=== PATIENT | female | born 1995 | race Caucasian/White ===

== ENCOUNTER 2021-10-25 14:56 | Inpatient (IN) ==
[2021-10-25] MEDS ORDERED: PENICILLIN G POTASSIUM 6 MU in DEXTROSE 5% 250 ML IV STA (14:59)
[2021-10-25] MEDS ORDERED: LACTATED RINGER'S 1,000 ML IV PRN (14:59)
[2021-10-25] MEDS ORDERED: OXYTOCIN 30 UNITS/500 ML BAG IV PRN ×3 (14:59→22:22)
[2021-10-25] MEDS ORDERED: PATIENT'S ALLERGY INFO NEEDS ENTERED SCH (15:15)
--- NOTE | 2021-10-25 15:15 | History & Physical Report ---
Date of Service October 25, 2021 Assessment & Plan (1) Group B streptococcal infection during : (2) : Plan: Admit in labor start antibiotics plans for epidural Admission and Anticipated Discharge Date Admission Date: October 25, 2021 History of Present Illness Chief Complaint: term in active labor Primary Care Provider: MARTELL PCP 26 F P0000 in active labor who was seen in the office earlier today Patient History OB History primip [employer] History neg Physical Exam Constitutional: WD/WN, vitals as above Eyes: PERRL, conjunctivae normal, anicteric sclerae Respiratory: normal respiratory effort, lungs clear to auscultation Cardiovascular: RRR, no murmur, no edema Skin: no rashes, warm and dry Neurologic: patellar DTR's 2+ bilat, sensation intact Psychiatric: A+Ox3, euthymic affect Genitourinary: OB Exam Abdomen: + vertex Manual OB Exam: + cervical dilation 6 cm, + cervical effacement 100%, + station 0 and + amniotic fluid OB Exam Monitor Tracing: + external FHT monitor used, + external uterine monitor used, + category I and + normal FHT variability Results & Data ([facility]) Vital Signs (Past 12 Hours) Vital Signs Temp Pulse Resp BP 10/25/21 15:05 37.2 C 96 H 22 163/111 H Code Status & VTE Plan VTE Prophylaxis Plan VTE Prophylaxis will be ordered: No Monitoring External Monitor Cat 1
[2021-10-25 15:26] LABS: Hemoglobin 11.5 g/dL (12.0-16.0); Mean Corpuscular Hemoglobin 33.7 pg (25-34); Mean Corpuscular Hgb Conc 34.8 g/dL (32-36); Mean Corpuscular Volume 96.8 fL (80-100); Mean Platelet Volume 12.4 fL (7.4-10.4); Platelet Count 173 K/uL (130-400); RDW Coefficient of Variation 13.2 % (11.5-14.5); RDW Standard Deviation 45.9 fL (36.4-46.3); Red Blood Count 3.41 M/uL (4.2-5.4); White Blood Count 8.39 K/uL (4.8-10.8)
[2021-10-25] MEDS ORDERED: NALOXONE HCL 1 MG in SODIUM CHLORIDE 0.9% 1000ML 1,000 ML IV PRN (16:20)
[2021-10-25] MEDS ORDERED: NALBUPHINE HCL INJ 10 MG/ML AMP IV PRN (16:20)
[2021-10-25] MEDS ORDERED: ONDANSETRON INJ 2 MG/ML 2 ML VIAL IV PRN (16:20)
[2021-10-25] MEDS ORDERED: NALOXONE HCL 0.4 MG/1 ML VIAL/CARP IV PRN (16:20)
[2021-10-25] MEDS ORDERED: ePHEDrine sulfate 50 MG/ML AMP IV PRN (16:20)
[2021-10-25] MEDS ORDERED: diphenhydrAMINE 50 MG/ML VIAL IV PRN (16:20)
[2021-10-25] MEDS ORDERED: fentaNYL 2MCG/ML ROPIVACAINE 1.25MG/ML 100 ML BAG EPI PRN (16:20)
--- NOTE | 2021-10-25 16:20 | Anesthesiology Consultation ---
Date of Service October 25, 2021 Assessment & Plan ASA ASA3 Proposed Anesthesia Anesthesia Type: Labor Epidural Risk / Benefits Reviewed With: PT / POA / Parent / Guardian, Accepts Plan and Informed Consent Obtained History Allergies Allergy/AdvReac Type Severity Reaction Status Date / Time No Known Allergies Allergy Verified 10/25/21 15:17 Medications Home Medications Medication Instructions Recorded Confirmed Last Taken ascorbic acid (vitamin C) 25 mg mg PO 10/25/21 10/25/21 08:00 tablet dextroamphetamine-amphetamine 5 mg 5 mg PO ONCE 10/25/21 10/25/21 10/24/21 12:00 tablet (Adderall) dextroamphetamine-amphetamine ER 20 mg PO DAILY 10/25/21 10/25/21 10/24/21 08:00 20 mg 24hr capsule,extend release (Adderall XR) ferrous sulfate 325 mg (65 mg 325 mg PO DAILY 10/25/21 10/25/21 10/25/21 08:00 iron) tablet (iron) fluticasone furoate 27.5 INTRANASAL DAILY 10/25/21 10/25/21 08:00 mcg/actuation nasal spray,suspension dyubyfni-uco-Aa-FA 1 mg tab PO 10/25/21 10/25/21 08:00 tablet Active Medications Generic Name Dose Route Start Last Admin Trade Name Freq PRN Reason Stop Dose Admin Lactated Ringer's 1,000 mls @ 125 mls/hr 10/25/21 14:59 10/25/21 15:56 Lr IV 10/27/21 14:58 125 mls/hr .Q8H PRN Administration L&D Protocol Protocol Past Medical History Medical History (Updated 10/25/21 @ 16:16 by Keila Bellamy RN) Attention deficit disorder Recurrent cold sores Seasonal allergies Exercise / Class Metabolic Activity II 4-5 Yardwork/Stairs/Walk up hill Past Anesthesia History No Hx of Anesthesia Complications and No Family Hx of Anesthesia Complications History of PONV No Hx of PONV and No Hx of Motion Sickness Review of Systems denies fever/cough/ colds/ chest pain/ SOB/ BEENA denies BEENA Physical Exam Vital Signs Last Vital Signs Temp 37.2 C 10/25/21 16:26 Pulse 91 H 10/25/21 17:39 Resp 20 10/25/21 16:26 BP 141/87 H 10/25/21 17:33 Pulse Ox 98 10/25/21 17:39 ENMT Mouth: no TMJ abnormality and no dentition abnormality Thyromental Distance: > or= 3.5 Finger Breadths Mallampati Class: II Neck neck extension not limited Respiratory normal respiratory effort; no respiratory distress Auscultation: lungs clear to auscultation bilaterally Cardiovascular Rate/Rhythm: regular rate and regular rhythm Neurologic moves all extremities Psychiatric Orientation: alert and oriented x 3 Testing Laboratory Results 10/25/21 15:12
[2021-10-25] MEDS ORDERED: ePHEDrine sulfate 50 MG/ML AMP ONE (16:54)
[2021-10-25] MEDS ORDERED: SODIUM CHLORIDE 0.9% INJ 10 ML VIAL ONE (16:54)
[2021-10-25] MEDS ORDERED: BUPIVACAINE 0.25% 30 ML VIAL ONE (16:54)
[2021-10-25] MEDS ORDERED: fentaNYL 2MCG/ML ROPIVACAINE 1.25MG/ML 100 ML BAG EPI ONE (16:55)
[2021-10-25] MEDS ORDERED: fentaNYL citrate 100 MCG/2 ML VIAL ONE (16:55)
[2021-10-25] MEDS ORDERED: PENICILLIN G POTASSIUM 3 MU in DEXTROSE 5% 100 ML IV PRN (17:59)
[2021-10-25] MEDS ORDERED: CALCIUM CARBONATE 500 MG CHEWABLE TAB PO PRN (18:53)
--- NOTE | 2021-10-25 19:36 | Labor Progress Brief Note ---
Date of Service October 25, 2021 Assessment & Plan Admission and Anticipated Discharge Date Admission Date: October 25, 2021 Physical Exam Genitourinary: Manual OB Exam: + cervical effacement 100%, + station + 1 and + amniotic fluid clear OB Exam Monitor Tracing: + external FHT monitor used, + external uterine monitor used, + category I and + normal FHT variability Will start Oxytocin to augment contractions Results & Data ([facility]) Vital Signs (Past 12 Hours) Vital Signs Temp Pulse Resp BP Pulse Ox 10/25/21 19:34 95 H 132/93 10/25/21 19:29 86 99 10/25/21 19:24 83 98 10/25/21 19:23 81 141/96 H 10/25/21 19:19 114 H 100 10/25/21 19:14 98 H 157/98 H 100 10/25/21 19:09 84 98 10/25/21 19:04 36.7 C 79 18 140/91 98 10/25/21 18:59 86 99 10/25/21 18:54 82 100 10/25/21 18:53 77 138/98 10/25/21 18:49 81 100 10/25/21 18:46 93 H 136/87 10/25/21 18:44 93 H 100 10/25/21 18:39 87 100 10/25/21 18:34 96 H 98 10/25/21 18:33 90 134/86 10/25/21 18:29 87 100 10/25/21 18:24 80 99 10/25/21 18:23 82 140/90 10/25/21 18:19 91 H 99 10/25/21 18:14 90 149/82 H 99 10/25/21 18:09 88 100 10/25/21 18:04 81 139/88 100 10/25/21 17:59 86 99 10/25/21 17:54 96 H 99 10/25/21 17:53 102 H 132/85 10/25/21 17:49 95 H 100 10/25/21 17:44 93 H 140/88 99 10/25/21 17:39 91 H 98 10/25/21 17:34 90 99 10/25/21 17:33 87 141/87 H 10/25/21 17:29 89 99 10/25/21 17:24 103 H 99 10/25/21 17:22 93 H 149/93 H 10/25/21 17:20 89 147/89 H 10/25/21 17:19 105 H 99 10/25/21 17:18 100 H 149/97 H 10/25/21 17:16 102 H 147/96 H 10/25/21 17:15 99 H 156/99 H 10/25/21 17:14 100 H 100 10/25/21 17:10 93 H 156/88 H 10/25/21 17:09 102 H 99 10/25/21 17:04 106 H 100 10/25/21 17:01 93 H 156/111 H 10/25/21 16:59 100 H 100 10/25/21 16:56 95 H 140/95 10/25/21 16:51 85 148/96 H 10/25/21 16:40 86 145/93 H 10/25/21 16:31 83 136/86 10/25/21 16:26 37.2 C 20 10/25/21 16:21 92 H 133/93 10/25/21 16:10 75 136/87 10/25/21 16:00 80 145/81 H 10/25/21 15:51 78 139/81 10/25/21 15:30 88 148/91 H 10/25/21 15:16 96 H 152/100 H 10/25/21 15:05 37.2 C 96 H 22 163/111 H
[2021-10-25] MEDS ORDERED: LIDOCAINE 1% LOCAL 20 ML VIAL ONE (21:58)
[2021-10-25] MEDS ORDERED: BENZOCAINE 20% AER SPR 82.5 GM CAN EXT PRN (22:22)
[2021-10-25] MEDS ORDERED: HYDROCORTISONE ACETATE 25 MG SUPP PR PRN (22:22)
[2021-10-25] MEDS ORDERED: ACETAMINOPHEN 325 MG TAB PO PRN (22:22)
[2021-10-25] MEDS ORDERED: DIPHTHERIA/TETANUS/PERTUSSIS 0.5 ML SYR/VIAL IM ONE (22:22)
--- NOTE | 2021-10-25 22:28 | Delivery Summary ---
Vaginal Delivery Summary Date of Service October 25, 2021 Vaginal Delivery Summary Delivery Note live female ZHENG over intact perineum with Apgars 8/9 weight pending. Delayed cord clamping followed by cord blood and spontaneous delivery of intact placenta. Small 1st degree perineal tear repaired with 1% Lidocaine and 4/0 Vicryl. Noted prior to delivery while pushing is right sided vulvar swelling with possible hematoma forming with no bleeding noted. Ice applied. EBL 150 ml. Final sponge, needle and instrument count are correct. Mom and baby stable.
[2021-10-25] MEDS: IBUPROFEN 600 MG TAB PO PRN (23:31)
[2021-10-26] MEDS: ACETAMINOPHEN W/CODEINE #3 1 TAB PO PRN ×2 (00:46→07:54)
[2021-10-26] MEDS: IBUPROFEN 600 MG TAB PO PRN ×4 (03:40→17:19)
[2021-10-26] MEDS: PRENATAL VITAMIN 1 TAB PO SCH (07:52)
[2021-10-26] MEDS: FERROUS SULFATE 325 MG TAB PO SCH (07:52)
[2021-10-26] MEDS: DOCUSATE SODIUM 100 MG CAP PO SCH ×2 (07:52→20:10)
[2021-10-26 07:58] LABS: Hematocrit (blood only) 28.9 % (37-47); Hemoglobin 9.9 g/dL (12.0-16.0); Mean Corpuscular Hemoglobin 33.6 pg (25-34); Mean Corpuscular Hgb Conc 34.3 g/dL (32-36); Mean Platelet Volume 12.1 fL (7.4-10.4); Platelet Count 125 K/uL (130-400); RDW Coefficient of Variation 13.3 % (11.5-14.5); RDW Standard Deviation 47.3 fL (36.4-46.3); Red Blood Count 2.95 M/uL (4.2-5.4); White Blood Count 9.93 K/uL (4.8-10.8)
[2021-10-26] MEDS: AMPHETAMINE ASP/SULF/DEXTRAMPH ER 20 MG CAP PO SCH (08:00)
[2021-10-26] MEDS ORDERED: FERROUS SULFATE 325 MG TAB PO SCH (09:00)
--- NOTE | 2021-10-26 09:29 | Obstetrical Progress Note ---
Date of Service October 26, 2021 Assessment & Plan Admission and Anticipated Discharge Date Admission Date: October 25, 2021 Subjective Patient is seen and examined. She feels well, no complaints other than swelling in labia which is getting better Ambulating without dizziness Voiding without difficulty Tolerating regular diet with out N&V Bleeding is minimal No fever/ chills/ CP/ SOB/ N&V/ Leg pain Breast feeding without problems Vital Signs Temp Pulse Pulse Resp BP BP Pulse Ox 10/26/21 07:45 36.4 C L 79 16 141/86 H 99 10/26/21 03:35 36.5 C 75 18 137/86 10/26/21 00:40 36.5 C 83 18 139/83 98 10/26/21 00:21 36.9 C 91 H 18 132/77 10/26/21 00:06 94 H 142/91 H 10/25/21 23:51 96 H 18 141/86 H 10/25/21 23:36 86 136/87 10/25/21 23:20 98 H 18 146/91 H 10/25/21 23:05 91 H 18 142/91 H 10/25/21 22:51 90 18 133/89 10/25/21 22:35 90 18 150/93 H 10/25/21 22:25 86 97 10/25/21 22:21 86 18 151/94 H 10/25/21 22:20 86 97 10/25/21 22:15 95 H 96 10/25/21 22:10 107 H 161/83 H 97 10/25/21 22:06 95 H 155/81 H 10/25/21 22:05 97 H 95 10/25/21 22:00 105 H 96 10/25/21 21:55 112 H 97 10/25/21 21:51 126 H 199/97 H 10/25/21 21:50 130 H 95 10/25/21 21:49 138 H 91 10/25/21 21:45 152 H 95 10/25/21 21:43 156 H 94 10/25/21 21:40 135 H 96 10/25/21 21:38 115 H 80 L 10/25/21 21:37 106 H 145/73 H 10/25/21 21:35 156 H 96 10/25/21 21:30 115 H 97 Lab Results 10/25/21 10/25/2122 Range/Units 15:00 15:12 06:20 WBC 8.39 9.93 (4.8-10.8) K/uL RBC 3.41 L 2.95 L (4.2-5.4) M/uL Hgb 11.5 L 9.9 L (12.0-16.0) g/dL Hct 33.0 L 28.9 L (37-47) % MCV 96.8 98.0 (80-100) fL MCH 33.7 33.6 (25-34) pg MCHC 34.8 34.3 (32-36) g/dL RDW Std Deviation 45.9 47.3 H (36.4-46.3) fL RDW Coeff of Lucas 13.2 13.3 (11.5-14.5) % Plt Count 173 125 L (130-400) K/uL MPV 12.4 H 12.1 H (7.4-10.4) fL SARS-CoV-2, RNA, NAAT NEGATIVE (NEGATIVE) PE: General: Alert, orientedx3, NAD Abd: soft, NT, fundus firm, below Umbilicus Perineum intact, diffuse edema BL, R>L, small purple on the right upper labia Lochia rubra minimal Ext; NT, no edema AP: 26 yo s/p , ppd# 1 VSS Afebrile doing well Labial swelling and stable small hematoma Continue with ice pack, avoid constipation/ straining Continue routine care All questions were answered D/C home tomorrow Results & Data ([facility]) Vital Signs (Past 12 Hours) Vital Signs Temp Pulse Pulse Resp BP BP Pulse Ox 10/26/21 07:45 36.4 C L 79 16 141/86 H 99 10/26/21 03:35 36.5 C 75 18 137/86 10/26/21 00:40 36.5 C 83 18 139/83 98 10/26/21 00:21 36.9 C 91 H 18 132/77 10/26/21 00:06 94 H 142/91 H 10/25/21 23:51 96 H 18 141/86 H 10/25/21 23:36 86 136/87 10/25/21 23:20 98 H 18 146/91 H 10/25/21 23:05 91 H 18 142/91 H 10/25/21 22:51 90 18 133/89 10/25/21 22:35 90 18 150/93 H 10/25/21 22:25 86 97 10/25/21 22:21 86 18 151/94 H 10/25/21 22:20 86 97 10/25/21 22:15 95 H 96 10/25/21 22:10 107 H 161/83 H 97 10/25/21 22:06 95 H 155/81 H 10/25/21 22:05 97 H 95 10/25/21 22:00 105 H 96 10/25/21 21:55 112 H 97 10/25/21 21:51 126 H 199/97 H 10/25/21 21:50 130 H 95 10/25/21 21:49 138 H 91 10/25/21 21:45 152 H 95 10/25/21 21:43 156 H 94 10/25/21 21:40 135 H 96 10/25/21 21:38 115 H 80 L 10/25/21 21:37 106 H 145/73 H 10/25/21 21:35 156 H 96 10/25/21 21:30 115 H 97
--- NOTE | 2021-10-26 09:39 | Obstetrical Progress Note ---
Date of Service October 26, 2021 Assessment & Plan Admission and Anticipated Discharge Date Admission Date: October 25, 2021 Subjective Addendum: BP's have been elevated Low platelets Asymptomatic Order [facility] to check LFT's and start Labetalol Results & Data ([facility]) Vital Signs (Past 12 Hours) Vital Signs Temp Pulse Pulse Resp BP BP Pulse Ox 10/26/21 07:45 36.4 C L 79 16 141/86 H 99 10/26/21 03:35 36.5 C 75 18 137/86 10/26/21 00:40 36.5 C 83 18 139/83 98 10/26/21 00:21 36.9 C 91 H 18 132/77 10/26/21 00:06 94 H 142/91 H 10/25/21 23:51 96 H 18 141/86 H 10/25/21 23:36 86 136/87 10/25/21 23:20 98 H 18 146/91 H 10/25/21 23:05 91 H 18 142/91 H 10/25/21 22:51 90 18 133/89 10/25/21 22:35 90 18 150/93 H 10/25/21 22:25 86 97 10/25/21 22:21 86 18 151/94 H 10/25/21 22:20 86 97 10/25/21 22:15 95 H 96 10/25/21 22:10 107 H 161/83 H 97 10/25/21 22:06 95 H 155/81 H 10/25/21 22:05 97 H 95 10/25/21 22:00 105 H 96 10/25/21 21:55 112 H 97 10/25/21 21:51 126 H 199/97 H 10/25/21 21:50 130 H 95 10/25/21 21:49 138 H 91 10/25/21 21:45 152 H 95 10/25/21 21:43 156 H 94 10/25/21 21:40 135 H 96
[2021-10-26 10:12] LABS: Albumin Level 2.8 gm/dl (3.4-5.0); BUN Creatinine Ratio 12.3 (10-20); Bilirubin,Total 0.2 mg/dl (0.2-1.0); Calcium 8.5 mg/dl (8.5-10.1); Creatinine Clr Calc Pharmacy 111.3 ml/min; Est GFR (Non-African American) 120.8 ml/min; Globulin 2.7 gm/dl (2.5-4.0); Total Protein 5.5 gm/dl (6.0-8.3)
[2021-10-26] MEDS: MAGNESIUM HYDROXIDE SUSP 30 ML UDC PO SCH ×2 (10:20→20:10)
[2021-10-26] MEDS: LABETALOL HCL 100 MG TAB PO SCH ×2 (10:24→20:11)
[2021-10-26] MEDS: AMPHETAMINE ASP/SULF/DEXTRAMPH 5 MG TAB PO SCH (12:31)
[2021-10-26] MEDS: oxyCODONE/ACETAMINOPHEN 5mg/325mg TAB PO PRN ×2 (13:22→17:19)
[2021-10-26] MEDS ORDERED: bisacodyL 5 MG TABEC PO SCH (20:00)
[2021-10-26] MEDS ORDERED: MoRPHine SULFATE 4 MG/ML 1 ML CARP\\VIAL IV ONE (20:38)
[2021-10-27] MEDS ORDERED: bisacodyL 10 MG SUPP PR PRN
[2021-10-27] MEDS: IBUPROFEN 600 MG TAB PO PRN ×2 (00:14→05:06)
[2021-10-27] MEDS: oxyCODONE/ACETAMINOPHEN 5mg/325mg TAB PO PRN ×3 (00:14→14:08)
[2021-10-27 06:29] LABS: Hematocrit (blood only) 26.7 % (37-47)
[2021-10-27 07:34] LABS: Hematocrit (blood only) 26.5 % (37-47); Mean Corpuscular Hemoglobin 33.8 pg (25-34); Mean Corpuscular Volume 99.6 fL (80-100); Platelet Count 134 K/uL (130-400); RDW Coefficient of Variation 13.6 % (11.5-14.5); RDW Standard Deviation 48.8 fL (36.4-46.3); Red Blood Count 2.66 M/uL (4.2-5.4); White Blood Count 8.37 K/uL (4.8-10.8)
[2021-10-27 08:03] LABS: Basophils # (auto) 0.02 K/uL (0-0.2); Basophils % (auto) 0.2 %; Eosinophils # (auto) 0.08 K/uL (0-0.5); Immature Granulocytes # (auto) 0.01 K/uL (0.00-0.02); Immature Granulocytes % (auto) 0.1 %; Lymphocytes # (auto) 1.39 K/uL (1.2-3.4); Lymphocytes % (auto) 16.6 %; Monocytes % (auto) 7.2 %; Neutrophils # (auto) 6.27 K/uL (1.4-6.5); Neutrophils % (auto) 74.9 %
[2021-10-27 08:04] LABS: Alanine Aminotransferase 20 U/L (7-52); Albumin Globulin Ratio 1.3 (0.9-2); Alkaline Phosphatase 135 U/L (34-104); Anion Gap 7 (3-11); Aspartate Aminotransferase 44 U/L (13-39); BUN Creatinine Ratio 18.4 (10-20); Bilirubin,Total 0.2 mg/dl (0.2-1.0); Blood Urea Nitrogen 9 mg/dl (6-23); Calcium 7.9 mg/dl (8.5-10.1); Carbon Dioxide 24 mmol/L (21-32); Chloride 105 mmol/L (98-107); Creatinine Clr Calc Pharmacy 147.6 ml/min; Est GFR (African American) > 150.0 ml/min; Est GFR (Non-African American) 132.6 ml/min; Globulin 2.4 gm/dl (2.5-4.0); Glucose 90 mg/dl (70-99(Fasting)); Potassium 3.8 mmol/L (3.5-5.1); Sodium 136 mmol/L (136-145); Total Protein 5.4 gm/dl (6.0-8.3)
--- NOTE | 2021-10-27 08:38 | Obstetrical Progress Note ---
Date of Service October 27, 2021 Assessment & Plan (1) Normal course: Continue routine PP course D/C home today (2) Gestational hypertension: BP well controlled on labetalol 100 mg BID, last BP 126/76 BP check in 1 week Subjective Ambulation: ambulating normally Voiding: no voiding problems Passing Gas:: Yes Diet Tolerance:: regular diet Lochia:: Small Feeding Type:: bottle feeding Current Pain Level(1-10): 1 Physical Exam Constitutional WD/WN, vitals as above Respiratory normal respiratory effort, lungs clear to auscultation Cardiovascular RRR, no murmur, no edema Gastrointestinal (Abdomen) normal bowel sounds, soft, nontender, no hepatosplenomegaly Results & Data ([facility]) Vital Signs (Past 12 Hours) Vital Signs Temp Pulse Resp BP BP Pulse Ox 10/27/21 07:28 36.5 C 82 16 126/76 10/27/21 03:18 36.6 C 83 16 142/78 H 97 10/27/21 00:10 36.7 C 94 H 17 131/78 97 10/26/21 21:00 146/88 H
[2021-10-27] MEDS: DOCUSATE SODIUM 100 MG CAP PO SCH (08:48)
[2021-10-27] MEDS: MAGNESIUM HYDROXIDE SUSP 30 ML UDC PO SCH (08:49)
[2021-10-27] MEDS: AMPHETAMINE ASP/SULF/DEXTRAMPH ER 20 MG CAP PO SCH (08:49)
[2021-10-27] MEDS: FERROUS SULFATE 325 MG TAB PO SCH (08:49)
[2021-10-27] MEDS: PRENATAL VITAMIN 1 TAB PO SCH (08:49)
[2021-10-27] MEDS ORDERED: LABETALOL HCL 100 MG TAB PO SCH (09:00)
[2021-10-27] MEDS: AMPHETAMINE ASP/SULF/DEXTRAMPH 5 MG TAB PO SCH (14:12)
== END 2021-10-27 14:56 | disposition home or self-care (01) | DRG 806 ==
LOC: OPB 14:56 → 4S1 14:58 → 4S2 10-26 00:57

== ENCOUNTER 2024-09-28 11:56 | Inpatient (IN) ==
[2024-09-28 12:39] LABS: Appearance Urine Cloudy (Clear); Bacteria Urine Automated 2+ (None Seen); Bilirubin Urine 1+ (Negative); Blood Urine Negative (Negative); Cast Urine Automated 0-2 /lpf (0-2); Color Urine Dark Yellow; Glucose Urine UA Negative (Negative); Ketones Urine 3+ (Negative); Leukocyte Esterase Urine Negative (Negative); Mucus Urine Present (None Prsent); Nitrite Urine Negative (Negative); Protein Urine 1+ (Negative); RBC Urine Automated 0-2 /hpf (0-2); Specific Gravity Urine 1.035 (1.000-1.030); Urobilinogen Urine Negative (Negative); WBC Urine Automated 0-5 /hpf (0-5)
--- NOTE | 2024-09-28 12:48 | Emergency Department Note ---
Impression & Plan Acute confusion ED Provider Note HISTORY OF PRESENT ILLNESS: Patient is a 29-year-old female presenting with altered mental status. provides most of history given patient's confusion. Reports that the patient has been having passive worsening confusion over the last 4 days. Reports that the patient has not had any changes to medications in the last week. She was supposed to be on Lexapro and that was changed about a month ago, but the patient has not been taking this. just thought that she was very tired and stressed from the holidays with there are 2 small children, 3-year-old and a 1-year-old. However, she is now telling him that she is hearing voices and worried that their "house is bugged." Reports she has not been eating or drinking much. Patient denies any abdominal pain, chest pain, shortness of breath, nausea or vomiting. She reports "I do not understand what is going on." Patient is frequently looking around the room. denies the patient having any alcohol or recreational drug use. ROS: as above PHYSICAL EXAM: Constitutional: Patient appears in no acute distress. HENT: Head: Normocephalic and atraumatic. Eyes: EOMI, PERRL Mouth/Throat: Mucous membranes moist. Neck: Trachea midline. Neck supple. Musculoskeletal: No edema, tenderness or deformity noted. Skin: Warm and dry. No rash, erythema, pallor or cyanosis Psychiatric: Patient seems to be frequently looking around the room and has difficulties making eye contact. Neurological: Alert and keenly responsive. CN II-XII grossly intact, moving all extremities equally and fully. MDM: - Vitals signs showed hypertension and tachycardia - History obtained via patient and patient's , given patient's confusion. History as above. - Chronic conditions affecting care: Gestational hypertension - Differential diagnoses include, but are not limited to: acute psychosis; drug intoxication; alcohol intoxication; intracranial hemorrhage; CVA; pneumonia; UTI\\ - External medical records reviewed. - EKG interpreted by myself showed normal sinus rhythm. Rate 81 bpm. QT 378. No acute ischemic changes. Noted have some T wave inversions in leads II and III. - Laboratory workup interpreted by myself showed slight leukopenia (WBC 4.49); normal PT/INR; stable electrolytes; normal troponin; negative hCG; normal TSH; negative alcohol/acetaminophen/salicylate levels - UA showed bacteria but no secondary findings to suggest a UTI. Noted to have 3+ ketones and elevated specific gravity, consistent with dehydration. - Viarl respiratory panel negative - UDS positive for THC - Patient given 1L NS in ER. - CT head wo contrast showed asymmetric prominence of the left caudate nucleus compared with the right which could be developmental versus secondary to a mass defect. Recommended brain MRI. - MRI brain ordered. - Discussed results with patient and her at bedside. reports that the THC was from a few weeks ago and she has not had anything recently. He states that she is still very confused and not her normal baseline. Patient is looking around the room and repeating questions from just a few minutes ago. 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 Will admit to hospital service for further evaluation and management. - Discussion was had with renal case manager about patient's case and need for admission - Hospitalist consulted for admission - Patient admitted to [facility] service for further evaluation and management. ASSESSMENT AND PLAN: Diagnosis: Acute confusion Plan: Admit Past Med/Surg History Problem List (Updated 09/28/24 @ 17:00 by Destinee Ball PA-C) Acute confusion (Acute) Medical History (Updated 09/28/24 @ 17:00 by Destinee Ball PA-C) Antepartum anemia Gestational hypertension Group B streptococcal infection during Seasonal allergies Recurrent cold sores Attention deficit disorder Surgical History (Updated 09/28/24 @ 17:00 by Destinee Ball PA-C) No pertinent past surgical history Family History (Updated 09/28/24 @ 17:01 by Destinee Ball PA-C) Brother Suicide Sister Liver disease Father Hypertension Other Heart disease Social History Smoking Status: Never smoker Hx Alcohol Use: No Hx Substance Use: No Preferred Language: Turkish Manager Risk Required: No Beliefs That Will Affect Care: None marital status: Current Living Situation: Spouse Feels Safe at Home: Yes Assistive Devices: None Allergies Allergies Allergy/AdvReac Type Severity Reaction Status Date / Time No Known Allergies Allergy Verified 10/25/21 15:17 Home Meds Home Medications Medication Instructions Recorded Confirmed ascorbic acid (vitamin C) 25 mg mg PO 10/25/21 tablet dextroamphetamine-amphetamine 5 mg 5 mg PO ONCE 10/25/21 10/25/21 tablet (Adderall) dextroamphetamine-amphetamine ER 20 mg PO DAILY 10/25/21 10/25/21 20 mg 24hr capsule,extend release (Adderall XR) ferrous sulfate 325 mg (65 mg 325 mg PO DAILY 10/25/21 10/25/21 iron) tablet (iron) fluticasone furoate 27.5 intranasal DAILY 10/25/21 mcg/actuation nasal spray,suspension wgbkyapz-[id number]-Ut-FA 1 mg tab PO 10/25/21 tablet Results & Data (ED) Vital Signs Vital Signs - 24 hr 09/28/24 12:00 09/28/24 12:09 09/28/24 15:28 Temperature 36.8 C Temperature Source Skin Pulse Rate 93 H Pulse Rate [Apical] 73 Respiratory Rate 18 18 Blood Pressure 157/105 H Blood Pressure [Right Arm] 129/83 Blood Pressure Mean 122 Blood Pressure Mean [Right Arm] 98 Pulse Oximetry 98 96 98 Oxygen Delivery Method Room Air Sepsis Recent Fever Within 48 Hours No Sepsis New/Unexplained Change in Mental Status No Sepsis Action Taken by Nursing No Action Required Laboratory Data 09/28/24 12:18 09/28/24 12:18 Lab Results 09/28/24 Range/Units 12:18 WBC 4.49 L (4.8-10.8) K/ul RBC 4.24 (4.20-5.40) M/uL Hgb 14.2 (12.0-16.0) g/dl Hct 40.5 (37.0-47.0) % MCV 95.5 (80.0-100.0) fL MCH 33.5 (25.0-34.0) pg MCHC 35.1 (32.0-36.0) g/dL RDW Std Deviation 40.5 (36.4-46.3) fL RDW Coeff of Lucas 11.7 (11.5-14.5) % Plt Count 229 (130-400) K/uL MPV 10.8 (9.4-12.4) fL Immature Gran % (Auto) 0.2 % Neut % (Auto) 54.8 % Lymph % (Auto) 33.0 % [place] % (Auto) 10.2 % Eos % (Auto) 0.7 % Baso % (Auto) 1.1 % Neut # (Auto) 2.46 (1.40-6.50) K/uL Lymph # (Auto) 1.48 (1.20-3.40) K/uL [place] # (Auto) 0.46 (0.11-0.59) K/uL Eos # (Auto) 0.03 (0.00-0.50) K/uL Baso # (Auto) 0.05 (0.00-0.20) K/uL Immature Gran # (Auto) 0.01 (0.01-0.20) K/uL PT 10.9 (9.0-12.0) Seconds INR 1.0 (0.9-1.1) Sodium 140 (136-145) mmol/L Potassium 3.7 (3.5-5.1) mmol/L Chloride 104 (98-107) mmol/L Carbon Dioxide 27 (21-32) mmol/L Anion Gap 9 (3-11) BUN 15 (6-23) mg/dl Creatinine 0.70 (0.6-1.2) mg/dl Est Cr Clr Drug Dosing 98.2 ml/min eGFR 118.51 BUN/Creatinine Ratio 21.4 H (10-20) Glucose 89 (70-99(Fasting)) mg/dl Calcium 9.8 (8.6-10.3) mg/dl Magnesium 1.7 (1.7-2.4) mg/dl Total Bilirubin 0.8 (0.2-1.0) mg/dl AST 28 (13-39) U/L ALT 18 (7-52) U/L Alkaline Phosphatase 74 (34-104) U/L Troponin I High Sens < 2.3 (0-14) pg/ml Total Protein 8.3 (6.0-8.3) gm/dl Albumin 4.9 (3.4-5.0) gm/dl Globulin 3.4 (2.5-4.0) gm/dl Albumin/Globulin Ratio 1.4 (0.9-2) TSH 1.848 (0.300-4.500) uIu/ml HCG, Qual Negative (Negative) Urine Color Dark Yellow Urine Appearance Cloudy A (Clear) Urine pH 6.0 (4.5-7.5) Ur Specific [place] 1.035 H (1.000-1.030) Urine Protein 1+ H (Negative) Urine Glucose (UA) Negative (Negative) Urine Ketones 3+ H (Negative) Urine Blood Negative (Negative) Urine Nitrite Negative (Negative) Urine Bilirubin 1+ H (Negative) Urine Urobilinogen Negative (Negative) Ur Leukocyte Esterase Negative (Negative) Urine WBC (Auto) 0-5 (0-5) /hpf Urine RBC (Auto) 0-2 (0-2) /hpf U Hyaline Cast (Auto) 0-2 (0-2) /lpf U Epithel Cells (Auto) 6-10 H (0-2) /hpf Urine Bacteria (Auto) 2+ H (None Seen) Urine Mucus Present A (None Prsent) Salicylates < 3.0 L (3.0-30) mg/dl Urine Opiates Screen Neg (Neg) Ur Methadone, Qual Neg (Neg) Urine Fentanyl Screen Neg (Neg) Acetaminophen < 3 L (10-30) ug/ml Urine Barbiturates Neg (Neg) Ur Phencyclidine (PCP) Neg (Neg) U Amphetamin/Meth Scrn Neg (Neg) MDMA (Ecstasy) Screen Neg (Neg) U Benzodiazepines Scrn Neg (Neg) Ur Cocaine Metabolite Neg (Neg) U Marijuana (THC) Screen Pos H (Neg) Ethyl Alcohol mg/dL < 10.0 (<10.0) mg/dl Adenovirus (PCR) Not Detected (NotDetected) B. pertussis DNA (PCR) Not Detected (NotDetected) B.parapertussis DNA PCR Not Detected (NotDetected) C. pneumoniae DNA (PCR) Not Detected (NotDetected) Coronavirus OC43 (PCR) Not Detected (NotDetected) Coronavirus HKU1 (PCR) Not Detected (NotDetected) Coronavirus 229E (PCR) Not Detected (NotDetected) SARS-CoV-2 (PCR) Not Detected (NotDetected) Coronavirus NL63 (PCR) Not Detected (NotDetected) Human Metapneumovir PCR Not Detected (NotDetected) Influenza Type A (PCR) Not Detected (NotDetected) Influenza Type B (PCR) Not Detected (NotDetected) M. pneumoniae (PCR) Not Detected (NotDetected) Parainfluenza 1 (PCR) Not Detected (NotDetected) Parainfluenza 2 (PCR) Not Detected (NotDetected) Parainfluenza 3 (PCR) Not Detected (NotDetected) Parainfluenza 4 (PCR) Not Detected (NotDetected) RSV (PCR) Not Detected (NotDetected) Entero/Rhino (PCR) Not Detected (NotDetected) Administered Medications Discontinued Medications Sodium Chloride (Nss) 1,000 mls @ 999 mls/hr IV .Q1H1M ONE Stop: 09/28/24 15:02 Last Infusion: 09/28/24 15:16 Dose: Infused Documented By: Admin: 09/28/24 14:05 Dose: 999 mls/hr Documented By: SHANIKA Imaging Data Radiologist's Impression: Head CT 09/28/24 14:02 CT head/brain wo con CLINICAL HISTORY: confusion. Paranoia TECHNIQUE: Multiple axial CT images of the head were obtained without contrast. A dose lowering technique was utilized adhering to the principles of ALARA. Sagittal and coronal reconstructions were done. CT DOSE: 547.75 mGy.cm COMPARISON: None FINDINGS: There is no intra-axial or extra-axial fluid collection or hemorrhage. There is subtle asymmetry in the size of the caudate nuclei with the left caudate nucleus seemingly being significantly larger than the right. In spite of this, it is isointense with normal caudate nuclei tissue and is not associated with any mass effect. No additional brain attenuation abnormalities are identified. The ventricles and sulci are age appropriate with no midline shift. The bone windows are negative. IMPRESSION: Equivocal finding associated with asymmetric prominence of the left caudate nucleus compared with the right. This may be developmental or due to a migration defect but a mass cannot be completely excluded. Consider brain MRI for definitive evaluation. ACT 112: Negative or not required by law. The above report was generated using voice recognition software. It may contain grammatical, syntax or spelling errors. Electronically signed by: Brandi Tovar M.D. 09/28/2024 2:39 PM Discharge Plan Visit Data Chief Complaint: Mental Health Evaluation Stated Complaint: MENTAL HEALTH EVAL ED Provider: Briana Armenta Discharge Problem: Acute confusion Forms Stand Alone Forms: [facility], Suicide Prevention Resources Prescriptions Prescriptions: No Action dextroamphetamine-amphetamine [Adderall XR] 20 mg Capsule,Extended Release 24hr 20 mg PO DAILY Rx Instructions: takes in AM dextroamphetamine-amphetamine [Adderall] 5 mg Tablet 5 mg PO ONCE Rx Instructions: booster dose takes at lunch time fycmjbhy-[id number]-On-FA 1 mg Tablet PO ascorbic acid (vitamin C) 25 mg Tablet PO ferrous sulfate [iron] 325 mg (65 mg iron) Tablet 325 mg PO DAILY fluticasone furoate 27.5 mcg/actuation [place],Suspension INTRANASAL DAILY Referrals Referrals: PCP,NO [Physician] -
[2024-09-28 12:57] LABS: Basophils # (auto) 0.05 K/uL (0.00-0.20); Basophils % (auto) 1.1 %; Eosinophils # (auto) 0.03 K/uL (0.00-0.50); Eosinophils % (auto) 0.7 %; Hematocrit (blood only) 40.5 % (37.0-47.0); Hemoglobin 14.2 g/dl (12.0-16.0); Immature Granulocytes # (auto) 0.01 K/uL (0.01-0.20); Immature Granulocytes % (auto) 0.2 %; Lymphocytes # (auto) 1.48 K/uL (1.20-3.40); Mean Corpuscular Hemoglobin 33.5 pg (25.0-34.0); Mean Corpuscular Hgb Conc 35.1 g/dL (32.0-36.0); Mean Corpuscular Volume 95.5 fL (80.0-100.0); Mean Platelet Volume 10.8 fL (9.4-12.4); Monocytes # (auto) 0.46 K/uL (0.11-0.59); Monocytes % (auto) 10.2 %; Neutrophils # (auto) 2.46 K/uL (1.40-6.50); Neutrophils % (auto) 54.8 %; Platelet Count 229 K/uL (130-400); RDW Coefficient of Variation 11.7 % (11.5-14.5); RDW Standard Deviation 40.5 fL (36.4-46.3); Red Blood Count 4.24 M/uL (4.20-5.40); White Blood Count 4.49 K/ul (4.8-10.8)
[2024-09-28 13:07] LABS: Alanine Aminotransferase 18 U/L (7-52); Albumin Globulin Ratio 1.4 (0.9-2); Albumin Level 4.9 gm/dl (3.4-5.0); Alkaline Phosphatase 74 U/L (34-104); Anion Gap 9 (3-11); Aspartate Aminotransferase 28 U/L (13-39); BUN Creatinine Ratio 21.4 (10-20); Bilirubin,Total 0.8 mg/dl (0.2-1.0); Blood Urea Nitrogen 15 mg/dl (6-23); Calcium 9.8 mg/dl (8.6-10.3); Carbon Dioxide 27 mmol/L (21-32); Chloride 104 mmol/L (98-107); Creatinine Clr Calc Pharmacy 98.2 ml/min; Globulin 3.4 gm/dl (2.5-4.0); Glucose 89 mg/dl (70-99(Fasting)); Magnesium 1.7 mg/dl (1.7-2.4); Potassium 3.7 mmol/L (3.5-5.1); Sodium 140 mmol/L (136-145); Total Protein 8.3 gm/dl (6.0-8.3)
[2024-09-28 13:08] LABS: Pregnancy Test, Serum Negative (Negative)
[2024-09-28 13:12] LABS: Troponin I High Sensitivity < 2.3 pg/ml (0-14)
[2024-09-28 13:13] LABS: Amphetamines+Metham, Urine Neg (Neg); Barbiturates, Urine Neg (Neg); Benzodiazepine, Urine Neg (Neg); Cocaine, Urine Neg (Neg); Fentanyl, Urine Neg (Neg); MDMA (Ecstacy), Urine Neg (Neg); Marijuana, Urine Pos (Neg); Methadone, Urine Neg (Neg); Opiate, Urine Neg (Neg); Phencyclidine, Urine Neg (Neg)
[2024-09-28 13:17] LABS: Prothrombin Time 10.9 Seconds (9.0-12.0)
[2024-09-28 13:18] LABS: Adenovirus PCR Not Detected (NotDetected); Bordetella parapertussis PCR Not Detected (NotDetected); Bordetella pertussis PCR Not Detected (NotDetected); Chlamydia pneumoniae PCR Not Detected (NotDetected); Coronavirus 229E PCR Not Detected (NotDetected); Coronavirus CoV-2 (COVID19)PCR Not Detected (NotDetected); Coronavirus HKU1 PCR Not Detected (NotDetected); Coronavirus NL63 PCR Not Detected (NotDetected); Coronavirus OC43PCR Not Detected (NotDetected); Human Metapneumovirus PCR Not Detected (NotDetected); Influenza A PCR Not Detected (NotDetected); Influenza B PCR Not Detected (NotDetected); Mycoplasma pneumoniae PCR Not Detected (NotDetected); Parainfluenza Virus 1 PCR Not Detected (NotDetected); Parainfluenza Virus 2 PCR Not Detected (NotDetected); Parainfluenza Virus 3 PCR Not Detected (NotDetected); Parainfluenza Virus 4 PCR Not Detected (NotDetected); Respiratory Syncytial VirusPCR Not Detected (NotDetected); Rhinovirus/Enterovirus PCR Not Detected (NotDetected)
[2024-09-28 13:19] LABS: Acetaminophen < 3 ug/ml (10-30); Salicylate < 3.0 mg/dl (3.0-30)
[2024-09-28 13:22] LABS: Thyroid Stimulating Hormone 1.848 uIu/ml (0.300-4.500)
[2024-09-28] MEDS: SODIUM CHLORIDE 0.9% 1,000 ML IV ONE (14:05)
--- NOTE | 2024-09-28 14:40 | CT Scan Report ---
CT head/brain wo con CLINICAL HISTORY: confusion. Paranoia TECHNIQUE: Multiple axial CT images of the head were obtained without contrast. A dose lowering tech nique was utilized adhering to the principles of ALARA. Sagittal and coronal reconstructions were don e. CT DOSE: 547.75 mGy.cm COMPARISON: None FINDINGS: There is no intra-axial or extra-axial fluid collection or hemorrhage. There is subtle asym metry in the size of the caudate nuclei with the left caudate nucleus seemingly being significantly l arger than the right. In spite of this, it is isointense with normal caudate nuclei tissue and is not associated with any mass effect. No additional brain attenuation abnormalities are identified. The v entricles and sulci are age appropriate with no midline shift. The bone windows are negative. IMPRESSION: Equivocal finding associated with asymmetric prominence of the left caudate nucleus kristen red with the right. This may be developmental or due to a migration defect but a mass cannot be compl etely excluded. Consider brain MRI for definitive evaluation. ACT 112: Negative or not required by law. The above report was generated using voice recognition software. It may contain grammatical, syntax o r spelling errors. Electronically signed by: Brandi Tovar M.D. 09/28/2024 2:39 PM
--- NOTE | 2024-09-28 17:02 | History & Physical Report ---
Date of Service September 28, 2024 Assessment & Plan (1) Acute confusion: (2) Auditory hallucinations: (3) Attention deficit disorder: Plan This is a 29 y/o female with ADHD, prior gestational hypertension, post- depression, and other history as outlined below who presents to the ED today with acute confusion. Pt's initial work-up in the ED was negative for a specific cause. TSH was normal, urine positive for protein and ketones but negative for blood and leuk esterase. Urine tox was preliminarily positive for THC - reports use of vape pen 1-2 weeks ago. EtOH was negative. BioFire negative. CT head showed asymmetric prominence of the left caudate nucleus compared with the right so MRI of the brain was ordered and is pending. Pt referred for admission for further work-up and management of acute confusion without clear etiology. Differential includes infectious etiology such as UTI or Lyme, brain lesion, metabolic etiology, or psychiatric cause including potential acute psychosis. #Acute confusion #Auditory hallucinations - Admit to med telemetry - Additional labs ordered now - VBG, Lyme screen, B12, ammonia - MRI brain pending - if abnormal, consider neurology evaluation - Consult psychiatry - Empiric Rocephin - urine culture pending, Lyme screen ordered #ADHD - combined type #Anxiety - Not currently on any medications - stopped approximately one month ago #Abnormal EKG - Trend troponin - ECHO - Repeat EKG in the AM Pt seen and reviewed with collaborating physician, Dr. Ace. Plan of care discussed and as outlined above. Code status: full code DVT prophylaxis: Lovenox I spent a total [id number] coordinating, documenting, and providing care for this patient excluding time spent in the performance of separately billed services or time spent by another provider/[facility] Charles Ball PA-C History of Present Illness Chief Complaint: confusion Primary Care Provider: Maikel Stanton MD This is a 29 y/o female with ADHD, prior gestational hypertension, post- depression, and other history as outlined below who presents to the ED today with acute confusion. assists with the history due to patient's altered mental status. He reports that on Friday, three days ago, he noted that she seemed more lethargic and slightly confused. On Friday, the confusion seemed to be worsening. He describes patient as being paranoid and stating that their home was bugged and that someone was watching her. He is unsure if she was having visual hallucinations but notes she appeared to be having auditory hallucinations asking him if he heard things that no one else was hearing. He reports pt has had minimal oral intake over the last two days, which he relates to the paranoia. When asked, pt just says that she's not eating. She has also not been sleeping much the last 2-3 nights due to her son waking up frequently as well as due to increased anxiety. Her notes increasing social anxiety over the last several months. She apparently received notice on last week for jury duty yesterday, which resulted in increased anxiety. She was unable to attend jury duty yesterday because of the confusion and lethargy. She denies suicidal ideations, and her confirms that she has said nothing about hurting herself to him. She recognizes her children but today did not seem to know how she was supposed to interact with them. Her reports similar, less severe, symptoms about a month ago that lasted for two days before resolving spontaneously. Prior to that, he denies her having similar symptoms in the fourteen years that they have been together. She reportedly drinks alcohol a few times a week, typically a glass of wine with dinner or something similar. Her reports that she used a marijuana vape pen briefly 1-2 weeks ago but states that she does not regularly smoke. She has a history of ADHD and was on Adderall for years. However, about a month ago, she decided to stop all of her medications "cold turkey" one weekend just before the first episode of altered mental status. She saw her PCP after that episodes and was prescribed hydroxyzine for anxiety which she has only taken occasionally, most recently this morning. Pt denies overdosing on any of her medications or on any OTC medications. She denies chest pain, shortness of breath, neck stiffness, ROMERO, visual changes, N/V/D, abdominal pain, dysuria, fevers, weakness, syncope. She had some transient numbness and tingling in her bilateral fingertips earlier today. She notes occasional palpitations when anxiety is more severe. Allergies Allergy/AdvReac Type Severity Reaction Status Date / Time No Known Allergies Allergy Verified 10/25/21 15:17 Home Medications Medication Instructions Recorded Confirmed Type hydroxyzine HCl 10 mg tablet 10 mg PO Q6H PRN Anxiety 09/28/24 09/28/24 History Past Med/Surg History Problem List (Updated 09/28/24 @ 18:02 by Destinee Ball PA-C) Auditory hallucinations Acute confusion (Acute) Medical History (Updated 09/28/24 @ 18:02 by Destinee Ball PA-C) Antepartum anemia Gestational hypertension Group B streptococcal infection during Seasonal allergies Recurrent cold sores Attention deficit disorder Surgical History (Updated 09/28/24 @ 17:00 by Destinee Ball PA-C) No pertinent past surgical history Family History (Updated 09/28/24 @ 17:01 by Destinee Ball PA-C) Brother Suicide Sister Liver disease Father Hypertension Other Heart disease Social History Smoking Status: Never smoker Hx Alcohol Use: Yes Alcohol type: wine Hx Substance Use: No Preferred Language: [place] Communication Ability: Effective [place] Technician Required: No Beliefs That Will Affect Care: None marital status: Current Living Situation: Spouse Current Living Situation Comment: live with spouse and two kids in a house Feels Safe at Home: Yes Safety Concerns: Feels Safe At This Time Assistive Devices: None Review of Systems Review of Systems: All systems reviewed & are unremarkable except as noted in Subjective Physical Exam Physical Exam: See physician note for details of the physical exam. Results & Data Results & Data Vital Signs (Past 12 Hours) Vital Signs Temp Pulse Pulse Resp BP BP Pulse Ox 09/28/24 15:28 73 18 129/83 98 09/28/24 12:09 96 09/28/24 12:00 36.8 C 93 H 18 157/105 H 98 O2 Del Method 09/28/24 15:28 Room Air 09/28/24 12:09 09/28/24 12:00 Laboratory Results Lab Results 09/28/24 Range/Units 12:18 WBC 4.49 L (4.8-10.8) K/ul RBC 4.24 (4.20-5.40) M/uL Hgb 14.2 (12.0-16.0) g/dl Hct 40.5 (37.0-47.0) % MCV 95.5 (80.0-100.0) fL MCH 33.5 (25.0-34.0) pg MCHC 35.1 (32.0-36.0) g/dL RDW Std Deviation 40.5 (36.4-46.3) fL RDW Coeff of Lucas 11.7 (11.5-14.5) % Plt Count 229 (130-400) K/uL MPV 10.8 (9.4-12.4) fL Immature Gran % (Auto) 0.2 % Neut % (Auto) 54.8 % Lymph % (Auto) 33.0 % [place] % (Auto) 10.2 % Eos % (Auto) 0.7 % Baso % (Auto) 1.1 % Neut # (Auto) 2.46 (1.40-6.50) K/uL Lymph # (Auto) 1.48 (1.20-3.40) K/uL [place] # (Auto) 0.46 (0.11-0.59) K/uL Eos # (Auto) 0.03 (0.00-0.50) K/uL Baso # (Auto) 0.05 (0.00-0.20) K/uL Immature Gran # (Auto) 0.01 (0.01-0.20) K/uL PT 10.9 (9.0-12.0) Seconds INR 1.0 (0.9-1.1) Sodium 140 (136-145) mmol/L Potassium 3.7 (3.5-5.1) mmol/L Chloride 104 (98-107) mmol/L Carbon Dioxide 27 (21-32) mmol/L Anion Gap 9 (3-11) BUN 15 (6-23) mg/dl Creatinine 0.70 (0.6-1.2) mg/dl Est Cr Clr Drug Dosing 98.2 ml/min eGFR 118.51 BUN/Creatinine Ratio 21.4 H (10-20) Glucose 89 (70-99(Fasting)) mg/dl Calcium 9.8 (8.6-10.3) mg/dl Magnesium 1.7 (1.7-2.4) mg/dl Total Bilirubin 0.8 (0.2-1.0) mg/dl AST 28 (13-39) U/L ALT 18 (7-52) U/L Alkaline Phosphatase 74 (34-104) U/L Troponin I High Sens < 2.3 (0-14) pg/ml Total Protein 8.3 (6.0-8.3) gm/dl Albumin 4.9 (3.4-5.0) gm/dl Globulin 3.4 (2.5-4.0) gm/dl Albumin/Globulin Ratio 1.4 (0.9-2) TSH 1.848 (0.300-4.500) uIu/ml HCG, Qual Negative (Negative) Urine Color Dark Yellow Urine Appearance Cloudy A (Clear) Urine pH 6.0 (4.5-7.5) Ur Specific [place] 1.035 H (1.000-1.030) Urine Protein 1+ H (Negative) Urine Glucose (UA) Negative (Negative) Urine Ketones 3+ H (Negative) Urine Blood Negative (Negative) Urine Nitrite Negative (Negative) Urine Bilirubin 1+ H (Negative) Urine Urobilinogen Negative (Negative) Ur Leukocyte Esterase Negative (Negative) Urine WBC (Auto) 0-5 (0-5) /hpf Urine RBC (Auto) 0-2 (0-2) /hpf U Hyaline Cast (Auto) 0-2 (0-2) /lpf U Epithel Cells (Auto) 6-10 H (0-2) /hpf Urine Bacteria (Auto) 2+ H (None Seen) Urine Mucus Present A (None Prsent) Salicylates < 3.0 L (3.0-30) mg/dl Urine Opiates Screen Neg (Neg) Ur Methadone, Qual Neg (Neg) Urine Fentanyl Screen Neg (Neg) Acetaminophen < 3 L (10-30) ug/ml Urine Barbiturates Neg (Neg) Ur Phencyclidine (PCP) Neg (Neg) U Amphetamin/Meth Scrn Neg (Neg) MDMA (Ecstasy) Screen Neg (Neg) U Benzodiazepines Scrn Neg (Neg) Ur Cocaine Metabolite Neg (Neg) U Marijuana (THC) Screen Pos H (Neg) Ethyl Alcohol mg/dL < 10.0 (<10.0) mg/dl Adenovirus (PCR) Not Detected (NotDetected) B. pertussis DNA (PCR) Not Detected (NotDetected) B.parapertussis DNA PCR Not Detected (NotDetected) C. pneumoniae DNA (PCR) Not Detected (NotDetected) Coronavirus OC43 (PCR) Not Detected (NotDetected) Coronavirus HKU1 (PCR) Not Detected (NotDetected) Coronavirus 229E (PCR) Not Detected (NotDetected) SARS-CoV-2 (PCR) Not Detected (NotDetected) Coronavirus NL63 (PCR) Not Detected (NotDetected) Human Metapneumovir PCR Not Detected (NotDetected) Influenza Type A (PCR) Not Detected (NotDetected) Influenza Type B (PCR) Not Detected (NotDetected) M. pneumoniae (PCR) Not Detected (NotDetected) Parainfluenza 1 (PCR) Not Detected (NotDetected) Parainfluenza 2 (PCR) Not Detected (NotDetected) Parainfluenza 3 (PCR) Not Detected (NotDetected) Parainfluenza 4 (PCR) Not Detected (NotDetected) RSV (PCR) Not Detected (NotDetected) Entero/Rhino (PCR) Not Detected (NotDetected) Diagnostic Findings Head CT 09/28/24 14:02 CT head/brain wo con CLINICAL HISTORY: confusion. Paranoia TECHNIQUE: Multiple axial CT images of the head were obtained without contrast. A dose lowering technique was utilized adhering to the principles of ALARA. Sagittal and coronal reconstructions were done. CT DOSE: 547.75 mGy.cm COMPARISON: None FINDINGS: There is no intra-axial or extra-axial fluid collection or hemorrhage. There is subtle asymmetry in the size of the caudate nuclei with the left caudate nucleus seemingly being significantly larger than the right. In spite of this, it is isointense with normal caudate nuclei tissue and is not associated with any mass effect. No additional brain attenuation abnormalities are identified. The ventricles and sulci are age appropriate with no midline shift. The bone windows are negative. IMPRESSION: Equivocal finding associated with asymmetric prominence of the left caudate nucleus compared with the right. This may be developmental or due to a migration defect but a mass cannot be completely excluded. Consider brain MRI for definitive evaluation. ACT 112: Negative or not required by law. The above report was generated using voice recognition software. It may contain grammatical, syntax or spelling errors. Electronically signed by: Brandi Tovar M.D. 09/28/2024 2:39 PM Medications Administered Discontinued Medications Sodium Chloride (Nss) 1,000 mls @ 999 mls/hr IV .Q1H1M ONE Stop: 09/28/24 15:02 Last Infusion: 09/28/24 15:16 Dose: Infused Documented By: Admin: 09/28/24 14:05 Dose: 999 mls/hr Documented By: SHANIKA Supervising Physician Co-Signing Physician Notes Patient is a 29-year-old female with history of ADHD, depression and other medical problems presents with acute confusion. Patient unable to provide much history. Most of the history is obtained from patient's family. She has been having worsening confusion over the past 3 days. Also reports some lethargy, poor sleep, worsening anxiety. Patient has been noted to be paranoid and appeared to have auditory hallucinations. Her appetite has been poor as well. Please review HPI for complete details of presentation. I personally reviewed blood work and imaging studies. MRI brain showed no acute process. Urinalysis abnormal. BioFire negative. EKG showed T wave abnormalities in anterior inferior leads. Physical Exam: Vitals signs as noted above General Appearance:Moderately built and nourished, no apparent distress Head: normocephalic, Atraumatic Eyes: normal inspection, EOMI Neck: supple, Trachea midline Respiratory/Chest: Normal breath sounds, CTA, No accessory muscle use Cardiovascular: S1, S2, No murmur Abdomen/GI:Soft, Non tender, Bowel sounds present Extremities/Musculoskeletal:normal inspection, no edema Neurologic/Psych:AAOX3, grossly no focal neurological deficits, anxious, confused Skin: normal color, warm Altered mental status DD: Rule out UTI. Possible acute psychosis Workup so far not contributory Urine culture pending Empirically started on Rocephin Psychiatry consulted I personally interviewed and examined the patient at bedside. I have reviewed the advanced practitioner's documentation on the date of service referred in note and agree with plan. Patient's care is coordinated with Destinee Salcedo. Please refer to the documentation above for details of patient's presentation and for discussion of other issues. I spent a total [id number] coordinating, documenting, and providing care for this patient excluding time spent in the performance of separately billed services or time spent by another provider/[facility]. (3) Attention deficit disorder Attention deficit type: attention deficit hyperactivity disorder (ADHD) Attention deficit-hyperactivity disorder type: combined inattentive-hyperactive Qualified Code(s): F90.2 - Attention-deficit hyperactivity disorder, combined type
--- NOTE | 2024-09-28 17:32 | Magnetic Resonance Report ---
Clinical History: Headaches and confusion Technique: Multiple T1 and T2-weighted magnetic resonance images were obtained of the brain without gadolinium contrast Findings: There is no sign of acute or old infarction with normal-appearing diffusion weighted images. No definite focus of demyelination is seen. No definite mass lesion is seen on this noncontrast study. There is no intracranial hemorrhage or other fluid collection. No midline shift or other form of herniation is seen. There is no hydrocephalus. Normal flow-voids are seen within the arteries of the [id number]. The orbits and paranasal sinuses appear normal. The mastoid air cells appear clear. Impression: Unremarkable noncontrast MRI of the brain Electronically signed by José Miguel Diehl 09-28-2024 5:28 PM
[2024-09-28 17:59] LABS: Base Excess VBG 0 mEq/L; HCO3 VBG 25 mmol/L; Oxygen Saturation VBG 90.6 %; PCO2 VBG 40 mmHg (38-50); PO2 VBG 58 mmHg
[2024-09-28] MEDS ORDERED: ACETAMINOPHEN 325 MG TAB PO PRN (18:06)
--- OUTSIDE RECORDS SUMMARY | 2024-09-28 18:14 | External Medical Summary | Summary of Care ---
Author Name Unknown Organization [facility] Address [address] [place] [address] Phone [phone] Care Team Providers Care School Photographer Name Role Phone Romy MUELLER MD, Maikel Duran Primary Care Provider [phone] Reason for Visit * Reason Onset Date Comments Medication Refill 06/11/2024 Encounter Details Date Type Department Care Team (Late st Contact Info) Description 06/11/2024 Refill Family Practice [facility] [place] [address] [facility] [place] [address] Maikel Stanton III, MD [address] [place] [address] Allergies No known active allergiesdocumented as of this encounter (statuses as of 06/14/2024) Medications Medication Sig Dispensed Refills Start Date End Date Status 27-0.8 MG Oral Tablet Take 1 Tablet by mouth daily at noon. Active Vitamin C 500 MG Oral Tablet (Ascorbic Acid)Indications:A ntepartum anemia complicating Take 1 Tablet by mouth daily. Take at same time as iron 90 Tablet 2 02/03/2023 Active valACYclovir HCl 1 GM Oral Tablet (Valtrex) Two pills by mouth every 12 hours for one day for cold sores 4 Tablet 5 03/24/2024 Active Amphetamine-Dextro amphet ER 25 MG Oral Capsule Extended Release 24 Hour (Adderall XR) Take 1 Capsule by mouth in the morning. Do not cut, crush or chew. 30 Capsule 06/14/2024 Active Amphetamine-Dextro amphetamine 5 MG Oral Tablet (Adderall) One tablet daily with lunch 30 Tablet 06/14/2024 Active Amphetamine-Dextro amphet ER 25 MG Oral Capsule Extended Release 24 Hour (Adderall XR) Take 1 Capsule by mouth in the morning. Do not cut, crush or chew. 30 Capsule 04/29/2024 06/11/2024 Discontinued (Refill) Amphetamine-Dextro amphetamine 5 MG Oral Tablet (Adderall) One tablet daily with lunch 30 Tablet 04/29/2024 06/11/2024 Discontinued (Refill) documented as of this encounter (statuses as of 06/14/2024) Active Problems Problem Noted Date Diagnosed Date Antepartum anemia complicating 023 Overview: Hgb 11.3 at 18 weeks, Rx sent Late care affecting , antepart um 02/03/2023 Overview: Late to care First PNV on 01/31/2023 at 17w 6d Patient states she didn't know she was until later; States she started feeling "weird" and a little dizzy [place] but they are happy about it Last Assessment & Plan: Strongly encouraged patient to comply with routine OB care recommendations. Supervision of high-risk , unspecified trimester 01/31/2023 Late care 01/31/2023 Overview: 1st seen 18 weeks Medication exposure during first trimester of pr egnancy 01/31/2023 Overview: Takes Adderall for ADHD Managed by Dr. Stanton, who is her PCP Patient plans to stay on this during and post Adderall (dextroamphetamine/amphetamine). Crosses Placenta. There are no adequate and well-controlled studies in women. Amphetamines should be used during only if the potential benefit justifies the potential risk to the fetus. Infants born to women taking amphetamines may have an increased risk of premature delivery, low weight, and may experience symptoms of withdrawal (dysphoria, agitation, and significant lassitude). History of gestational hypertension 01/31/2023 Overview: Gestational hypertension in 2021 Delivered at 37w5d Increased BP during labor and post- Sent home post on anti-hypertnesive Baseline Preeclampsia Labs Lab Results Component Value Date/Time PLATELET AUTO - [facility] 208 01/31/2023 10:32 AM CREATININE - [facility] 0.5 01/31/2023 10:32 AM BP Readings from Last 15 Encounters: 01/31/23 120/70 11/26/22 118/76 07/26/22 124/84 04/25/22 109/69 01/03/22 128/76 12/13/21 122/68 11/15/21 138/76 11/08/21 108/64 10/25/21 136/78 10/24/21 126/84 10/17/21 110/88 10/03/21 120/70 09/27/21 124/76 09/05/21 100/60 08/07/21 110/62 Last Assessment & Plan: Continues on baby ASA 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 She stated her understanding of these preeclamptic precautions. ADHD 06/20/2021 Last Assessment & Plan: Recommend referral to mental health specialist for evaluation and treatment if the patient experiences increased inattention, forgetfulness, restlessness and/or impulsivity. These symptoms may adversely affect the patient's behavioral and/or emotional functioning. ADHD (attention deficit hype ractivity disorder), combined type 04/19/2015 Overview: Diagnosed with severe ADHD 2014 Managed with Adderall Has discussed this with her PCP and plans to continue Adderall during Last Assessment & Plan: Well controlled with adderall MEDICATION USE AGREEMENT 06/15/2014 Overview: Managed by Romy. To view the Medication Usage Agreement, go to Action, Patient Files. documented as of this encounter (statuses as of 06/14/2024) Resolved Problems Problem Noted Date Diagnosed Date Resolved Date Supervision of high risk pre gnancy in second trimester 02/04/2023 05/16/2023 Thrombocytopenia 07/26/2022 02/26/2023 Carrier of group B Streptococcus 10/19/2021 12/13/2021 Antepartum anemia complicating 06/20/2021 12/13/2021 Overview: Upon review of CBC on 06/06/21 hemoglobin/hematocrit was 11.0/31.8. Last Assessment & Plan: RECOMMENDATIONS: 1. If hemoglobin is below 11 g/dl during first and third trimesters or less than10.5 g/dL in 2nd trimester, we recommend anemia studies to assess serum ferritin, iron, iron binding capacity, transferritin saturation, and hemoglobin electrophoresis. 2. If iron-deficiency anemia is confirmed, then we recommend iron supplementation with oral (preferred) or parenteral therapy (if recommended by blood conservation program after oral therapy has failed) as indicated to keep hemoglobin level above 11 g/dl during . Oral iron should be taken with orange juice. 3. If anemia studies do not reflect iron deficiency anemia we recommend checking TSH, B12 and folate levels and referral to a mail examiner. 4. If hemoglobin levels are below 8 g/dl, we recommend Maternal Medicine ultrasound for growth every 4 weeks after 24 weeks. Consider a blood transfusion if hemoglobin levels fall below 6 g/dL. ([employer] Bulletin Number 95, March,). 5. Consider Venofer transfusions if patient labs supportive of iron deficiency anemia with dosing of 300 mg IV weekly x 3 weeks High-risk , second trimester 06/20/2021 09/19/2021 Antepartum anemia complicating 05/16/2021 12/13/2021 Overview: Blood management referral at 28w Iron 33 - 151 ug/dL 200High Iron Binding Capacity 250 - 425 ug/dL 248Low Transferrin Saturation Percent 15 - 55 % 81High WBC 4.00 - 10.80 K/uL 6.56 RBC 3.85 - 5.15 M/uL 3.53Low HGB 12.0 - 15.3 g/dL 11.4Low Comment: Anemia reflex testing triggers on a HGB < 12.0 for Females and HGB < 13.0 for Males in accordance with the WHO Anemia Guidelines HCT 36.0 - 45.2 % 34.6Low MCV 81.5 - 97.5 fL 98.0High MCH 27.0 - 34.0 pg 32.3 MCHC 32.0 - 36.0 g/dL 32.9 RDW 11.5 - 15.5 % 11.9 MPV 6.6 - 11.1 fL 11.8High Nucleated RBC <=0 /100 WBCs 0 Plt 140 - 400 K/uL 218 Normal ferritin and B12. Ask-A-Doc to hematology 05/16/21: Mild anemia in a patient in her first trimester of : Most likely physiologic anemia secondary to increased plasma volume. Please repeat a CBC in 4-6 weeks. Repeat hgb 11 at 17wks - start BID iron and vit C Supervision of normal first 05/15/2021 12/13/2021 Medication exposure during f irst trimester of 05/15/2021 12/13/2021 Overview: adderall Last Assessment & Plan: Adderall -There are no adequate and well-controlled studies in women. Because there is evidence of developmental and behavioral adverse effects in humans and animals following amphetamine use, amphetamines should be used during only if the potential benefit to the mother outweighs the potential risk to the fetus. The risk of premature delivery and low weight is increased in infants born to mothers dependent on amphetamines. withdrawal risks are a factor as well. Recommend anatomy ultrasound with MFM at 20 weeks gestation and every 4 weeks thereafter in setting of continued adderall use in . documented as of this encounter (statuses as of 06/14/2024) Immunizations Name Administration Dates Next Due DTP Vaccine 02/02/1998, 4,1993,07/06,1993 HIB PRP-T, 4 Dose, PF, IM (H iberix, ActHib) 1993,1993,1993 HPV Vaccine, 4-Valent 06/29/2009,04/27/2009 HPV Vaccine, 9-Valent 11/13/2017 Hepatitis A, Ped/Adol., 18 y ear and below, 2-Dose 11/09/2009,04/27/2009 Hepatitis B, 0-19 yrs 1993,1993,12/31 MMR - Measles/Mumps/Rubella Vaccine 02/02/1998,1 Meningococcal Conjugate Vacc ine (Menactra/Menveo) 04/27/2009 OPV - Polio Virus Vaccine (Oral) 994,1993,1993,05/01 Seasonal Influenza, Quadriva lent, No Preserve, IM 06/29/2009 TDAP (age 10 and older)(Boostrix) 08/21/2021,01/2019,04/27/2009 documented as of this encounter Social History Tobacco Use Types Packs/Day Years Used Date Smoking Tobacco: Never Smokeless Tobacco: Never Alcohol Use Standard Drinks/Week Comments Not Currently 0 (1 standard drink = 0.6 oz pur e alcohol) AUDIT-C Answer Date Recorded Frequency of Alcohol Consumption 2-4 times a fri08/06/2019 Average Number of Drinks Not on file 019 Frequency of Binge Drinking Not on file 01/2019 PHQ-2 Answer Date Recorded PHQ-2 Score 0 10/20/2019 Hunger Vital Sign Answer Date Recorded Within the past 12 months, y ou worried that your food would run out before you got the money to buy more. Never true 02/01/20 23 Within the past 12 months, t he food you bought just didn't last and you didn't have money to get more. Never true 01/31/2023 Carrier Depression Scale Answer Date Recorded Carrier Depression Scale Total 3 12/29/2023 The thought of harming myself has occurred to me . Never 12/29/2023 Utilities Answer Date Recorded Do you have trouble paying y our heating, water, or electric bill? (Adult - for ages 18 years and over) Not on file 02/17/2024 Is your family able to pay t he heat, water, or electric bill? (Household - for ages 0-17 years) Not on file 02/17/2024 Does your family have access to good internet? (Household - for ages 0-17 years) Not on file 02/17/2024 Social Connections Answer Date Recorded How often do you feel lonely or isolated from those around you? (Adult - for ages 18 years and over) Not on file 02/17/2024 Sex and Gender Information Value Date Recorded Sex Assigned at Female 12/13/2021 3:15 PM EDT Gender Identity Female 12/13/2021 3:15 PM EDT Sexual Orientation Straight 12/13/2021 3: 15 PM EDT Job Start Date Occupation Industry Not on file Not on file Not on file documented as of this encounter Miscellaneous Notes * Telephone Encounter - Lulu Starr DO - 06/14/2024 10:20 AM EDT Signed Prescriptions: Disp Refills Amphetamine-Dextroamphet ER 25 MG Oral Cap*30 Cap*0 Sig: Take 1 Capsule by mouth in the morning. Do not cut, crush or chew. Authorizing Provider: LULU STARR Amphetamine-Dextroamphetamine 5 MG Oral Ta*30 Tab*0 Sig: One tablet daily with lunch Authorizing Provider: LULU STARR * Telephone Encounter - Misa Trevino RPh - 06/13/2024 9:50 AM EDT Pending Prescriptions: Disp Refills Amphetamine-Dextroamphet ER 25 MG Oral Cap*30 Cap*0 Sig: Take 1 Capsule by mouth in the morning. Do not cut, crush or chew. Amphetamine-Dextroamphetamine 5 MG Oral Ta*30 Tab*0 Sig: One tablet daily with lunch * Telephone Encounter - Misa Trevino RPh - 06/13/2024 9:50 AM EDT I have reviewed the patients controlled substance dispensing history in the Prescription Drug Monitoring Program in compliance with the [facility] regulations before prescribing a controlled substance. PDMP checked on 06/13/2024. Pending Prescriptions: Disp Refills Amphetamine-Dextroamphet ER 25 MG Oral Ca*30 Cap*0 Sig: Take 1 Capsule by mouth in the morning. Do not cut, crush or chew. Amphetamine-Dextroamphetamine 5 MG Oral T*30 Tab*0 Sig: One tablet daily with lunch Last Visit: 09/22/2023 (in office), Visit date not found (telemedicine) Next Visit: 07/01/2024 Date medication was last filled: 04/29/24 Date medication is due for refill: 05/28/24 [facility]: [id number] [facility] Is this request for a controlled substance? Yes and Urine Drug Screen Not completed Toxicology results: Results for orders placed or performed in visit on 06/06/21 TOXICOLOGY, URINE SCREEN W/ CONFIRMATION Result Value Amphetamines Screen, U Positive (A) Benzodiazepines Screen, U Negative Cannabinoids Screen, U Negative Cocaine Metabolite Screen, U Negative Hydrocodone Screen, U Negative Methadone Metabolite Screen, U Negative Morphine/Codeine Screen, U Negative Oxycodone Screen, U Negative Narrative Cutoff Concentrations: Drug Level Amphetamines 500 ng/mL Benzodiazepines 100 ng/mL Cannabinoids 50 ng/mL Cocaine Metabolite 150 ng/mL Hydrocodone / Hydromorphone 100 ng/mL Methadone Metabolite 100 ng/mL Morphine / Codeine 300 ng/mL Oxycodone / Oxymorphone 100 ng/mL Screening results are presumptive and can only be used for medical purposes. Positive screening results are reflexed to confirmatory testing. Please approve if appropriate. Thank you, Misa Trevino, PharmD Clinical Pharmacist [facility] ([facility]) 06/13/24 9:50 AM [phone] documented in this encounter Plan of Treatment Upcoming Encounters Date Type Department Care Team (Late st Contact Info) Description 07/01/2024 7:40 AM EDT Office Visit Family Practice [facility] [address] [place] [phone] Maikel Stanton III, MD [address] [place] [phone] Health Maintenance Due Date Last Done Comments Depression Screening 10/20/2020 10/20/2019 HPV/Co-Test 2023 COVID-19 Vaccine ( season) 2024 Influenza Vaccine (FLU shot) (#1) 2024 06/29/2009 Cervical Cancer Screening 12/13/2024 Pap Smear 12/13/2024 12/13/2021, 08/06/2019 DTap/Tdap Vaccines (9 - Td or Tdap) 08/21/2031 08/21/2021, 08/06/2019, 04/27/2009, Additional history exists Hepatitis B Vaccine Completed 1993, 1993, 1993 MENINGOCOCCAL (MENACTRA/MENVEO) Completed 04/27/2009 HPV (Gardasil) Vaccine Completed 8, 06/29/2009, 04/27/2009 Pneumococcal Vaccine: Pediatrics (0 to 5 Years) and At-Risk Patients (6 to 64 Years) Aged Out No longer eligible based on patient's age to complete this topic documented as of this encounter Medical Devices Not on filedocumented as of this encounter Care Teams School Photographer Relationship Specialty Start Date End Date Maikel Stanton III, MD [address] [place] [id number] PCP - General Family Medicine 05/27/22 documented as of this encounter
--- OUTSIDE RECORDS SUMMARY | 2024-09-28 18:14 | External Medical Summary | Summary of Care ---
Author Name Unknown Organization [facility] Address [address] [place] [address] Phone [phone] Care Team Providers Care Audio Video Tech Name Role Phone Romy MUELLER MD, Maikel Duran Primary Care Provider [phone] Reason for Referral * Evaluate & Treat - Unlimited Visits (Within 3 days (urgent)) - Authorized Specialty Diagnoses / Procedures Referred By Angeline recio Referred To Contact Psychology Diagnoses Attention deficit disorder, unspecified type Anxiety Maikel Stanton III, MD [address] [place] [address] Phone: tel: fax: Referral ID Status Reason Start Date Expiration Date Visits Requested Visits Authorized [id number] Authorized Specialty Services Required 4 [phone] Question Answer Referral Priority Within 3 days (urgent) Where should this appointment be scheduled? [facility] Is this referral for medication management? No Reason for Referral: Depression/Anxiety/Bipolar Specific Condition? Generalized Anxiety/Worry Comments add Reason for Visit * Reason Comments Follow Up Pt is here for here for follow up on anxiety medication. Pt is here to discuss decision to come off her Aderol and is enthusiastic in continuing to go with out it. Encounter Details Date Type Department Care Team (Late st Contact Info) Description 08/17/2024 9:00 AM EST Office Visit Family Practice [facility] [place] [address] [place] [address] Maikel Stanton III, MD [address] [place] [id number] Attention deficit disorder, unspecified type*; Anxiety Allergies No known active allergiesdocumented as of this encounter (statuses as of 08/17/2024) Medications 27-0.8 MG Oral Tablet Take 1 Tablet by mouth daily at noon. Active Vitamin C 500 MG Oral Tablet (Ascorbic Acid)Indications :Antepartum anemia complicating Take 1 Tablet by mouth daily. Take at same time as iron 90 Tablet 2 3 Active Additional Information Patient not taking.Reported on 08/17/2024 valACYclovir HCl 1 GM Oral Tablet (Valtrex) Two pills by mouth every 12 hours for one day for cold sores 4 Tablet 5 4 Active Escitalopram Oxalate 10 MG Oral Tablet (Lexapro) 1/2 DAILY X 8 DAYS THEN 1 DAILY 30 Tablet 5 4 Active Additional Information Patient not taking.Reported on 08/17/2024 Amphetamine-Dext roamphet ER 25 MG Oral Capsule Extended Release 24 Hour (Adderall XR) Take 1 Capsule by mouth in the morning. Do not cut, crush or chew. 30 Capsule 4 Active Additional Information Patient not taking.Reported on 08/17/2024 Amphetamine-Dext roamphetamine 5 MG Oral Tablet (Adderall) One tablet daily with lunch 30 Tablet 4 Active Additional Information Patient not taking.Reported on 08/17/2024 hydrOXYzine HCl 10 MG Oral Tablet (Atarax) Take 1 Tablet by mouth every 6 hours as needed for Anxiety. 40 Tablet 2 4 Active documented as of this encounter (statuses as of 08/17/2024) Active Problems Problem Noted Date Diagnosed Date Antepartum anemia complicating 023 Overview (02/03/2023): Hgb 11.3 at 18 weeks, Rx sent Late care affecting , antepart um 02/03/2023 Overview (02/04/2023): Late to care First PNV on 01/31/2023 at 17w 6d Patient states she didn't know she was until later; States she started feeling "weird" and a little dizzy [place] but they are happy about it Assessment & Plan (02/04/2023 8:03 AM EDT): Strongly encouraged patient to comply with routine OB care recommendations. Supervision of high-risk , unspecified trimester 01/31/2023 Late care 01/31/2023 Overview (01/31/2023): 1st seen 18 weeks Medication exposure during first trimester of pr egnancy 01/31/2023 Overview (02/04/2023): Takes Adderall for ADHD Managed by Dr. [...] significant lassitude). History of gestational hypertension 01/31/2023 Overview (02/03/2023): Gestational hypertension in 2021 Delivered at 37w5d [...] 120/70 09/27/21 124/76 09/05/21 100/60 08/07/21 110/62 Assessment & Plan (02/21/2023 9:13 AM EDT): Continues on baby ASA She was instructed to notify her parking assistant if she had any headaches that did not resolve with tylenol, changes in her vision or right upper quadrant/epigastric pain. She stated her understanding of these preeclamptic precautions. Assessment & Plan (02/04/2023 8:00 AM EDT): CONSIDERATIONS: Explained to patient that in a woman who has always had normal blood pressures, gestational hypertension (GHTN) is defined as persistent elevations in her BP after 20 weeks gestation. Elevated BP is defined as greater than or equal to 140mmHg systolic or greater than 90mmHg diastolic on two separate occasions at least 4 hours apart after 20 weeks gestation. Explained to patient that women with hypertension during are at significantly increased risk for placental abruption, pre-eclampsia/eclampsia, delivery, gestational diabetes, growth restriction, stillbirth, delivery, hemorrhage, and maternal morbidity. These risks are related to the severity of the hypertension RECOMMENDATIONS: Recommend patient be followed clinically. Also recommend labwork with AST/ALT and platelets, and urine protein screen. If diagnosed with gestational hypertension recommend Maternal Medicine ultrasound for growth within 1 week of GHTN diagnosis and then every 4 weeks thereafter. Reviewed that GHTN, pre-eclampsia and HELLP are not preventable conditions. There is some evidence that daily ASA 81mg may decrease the risk for recurrence in patients with additional risk factors we recommend that proceed with starting this therapy at 13 weeks. ADHD 06/20/2021 Assessment & Plan (06/20/2021 9:05 AM EDT): Recommend referral to mental health specialist for evaluation and treatment if the patient experiences increased inattention, forgetfulness, restlessness and/or impulsivity. These symptoms may adversely affect the patient's behavioral and/or emotional functioning. ADHD (attention deficit hype ractivity disorder), combined type 04/19/2015 Overview (02/04/2023): Diagnosed with severe ADHD 2014 Managed with Adderall Has discussed this with her PCP and plans to continue Adderall during Assessment & Plan (02/21/2023 9:13 AM EDT): Well controlled with adderall MEDICATION USE AGREEMENT 06/15/2014 Overview (06/15/2014): Managed by Romy. To view the Medication Usage Agreement, go to Action, Patient Files. documented as of this encounter (statuses as of 08/17/2024) Resolved Problems Problem Noted Date Diagnosed Date Resolved Date Supervision of high risk pre gnancy in second trimester 02/04/2023 05/16/2023 Thrombocytopenia 07/26/2022 02/26/2023 Carrier of group B Streptococcus 10/19/2021 12/13/2021 Antepartum anemia complicating 06/20/2021 12/13/2021 Overview (06/20/2021): Upon review of CBC on 06/06/21 hemoglobin/hematocrit was 11.0/31.8. Assessment & Plan (06/20/2021 9:04 AM EDT): RECOMMENDATIONS: 1. If hemoglobin is below 11 [...] and folate levels and referral to a screed operator. 4. If hemoglobin levels are below 8 g/dl, we recommend Maternal Medicine ultrasound for growth every 4 weeks after 24 weeks. Consider a blood transfusion if hemoglobin levels fall below 6 g/dL. ([employer] Practice Bulletin Number 95, March,). 5. Consider Venofer transfusions if patient labs supportive of iron deficiency anemia with dosing of 300 mg IV weekly x 3 weeks High-risk , second trimester 06/20/2021 09/19/2021 Antepartum anemia complicating 05/16/2021 12/13/2021 Overview (08/22/2021): Blood management referral at 28w Iron 33 [...] during f irst trimester of 05/15/2021 12/13/2021 Overview (05/15/2021): adderall Assessment & Plan (06/20/2021 9:04 AM EDT): Adderall -There are no adequate and well-controlled [...] as of this encounter (statuses as of 08/17/2024) Immunizations Name Administration Dates Next Due DTP [...] Date Smoking Tobacco: Never Smokeless Tobacco: Never Tobacco Cessation:Counseling Given: Not Answered Alcohol Use Standard Drinks/Week Comments Not Currently 0 (1 standard drink = 0.6 oz pur e alcohol) AUDIT-C Answer Date Recorded Frequency of Alcohol Consumption 2-4 times a fri08/06/2019 Average Number of Drinks Not on file 019 Frequency of Binge Drinking Not on file 01/2019 PHQ-2 Answer Date Recorded PHQ Adult Total Score 1 07/01/2024 Hunger Vital Sign Answer Date Recorded Within the past 12 months, y ou worried that your food would run out before you got the money to buy more. Never true 02/01/20 23 Within the past 12 months, t he food you bought just didn't last and you didn't have money to get more. Never true 01/31/2023 [place] Depression Scale Answer Date Recorded [place] Depression Scale Total 3 12/29/2023 The thought of harming myself has occurred to me . Never 12/29/2023 Comments Unknown Sex and Gender Information Value Date Recorded Sex Assigned at Female 12/13/2021 3:15 PM EDT Legal Sex Female 4:24 PM EDT Gender Identity Female 12/13/2021 3:15 PM EDT Sexual Orientation Straight 12/13/2021 3: 15 PM EDT documented as of this encounter Last Filed Vital Signs Vital Sign Reading Time Taken Comments Blood Pressure 124/82 08/17/2024 9:24 AM EST Pulse 92 08/17/2024 9:24 AM EST Temperature 36.2 C (97.1 F) 08/17/2024 9:24 AM ES T Respiratory Rate - - Oxygen Saturation 98% 08/17/2024 9:24 AM EST Inhaled Oxygen Concentration - - Weight 51.3 kg (113 lb) 08/17/2024 9:24 AM EST Height 162.6 cm (5' 4") 08/17/2024 9:24 AM EST Body Mass Index 19.4 08/17/2024 9:24 AM EST documented in this encounter Progress Notes * Romy MUELLER, Maikel Duran MD - 08/17/2024 9:48 AM EST Subjective: Yanni Burton is a 29 year old female. Chief Complaint Patient presents with Follow Up Pt is here for here for follow up on anxiety medication. Pt is here to discuss decision to come offher Aderol and is enthusiastic in continuing to go with out it. HPI: Follow-up anxiety ADD has been off her medicines for the past 3 weeks wishes to try and deal with things without medication can feel tear area times not getting as much in the way of exercise asshe had used to run marathons has 2 children at times feel like she has a ping-pong ball this time of year is difficult brother committed suicide no bleeding urine or bowels no exertional chest pain or shortness of breath no swelling of her ankles PHM: Patient Active Problem List Diagnosis MEDICATION USE AGREEMENT ADHD (attention deficit hyperactivity disorder), combined type ADHD Supervision of high-risk , unspecified trimester Late care Medication exposure during first trimester of History of gestational hypertension Antepartum anemia complicating Late care affecting , antepartum Current Outpatient Medications Medication Sig Dispense Refill valACYclovir HCl 1 GM Oral Tablet (Valtrex) Two pills by mouth every 12 hours for one day for cold sores 4 Tablet 5 hydrOXYzine HCl 10 MG Oral Tablet (Atarax) Take 1 Tablet by mouth every 6 hours as needed for Anxiety. 40 Tablet 2 27-0.8 MG Oral Tablet Take 1 Tablet by mouth daily at noon. (Patient not taking: Reported on 08/17/2024) Vitamin C 500 MG Oral Tablet (Ascorbic Acid) Take 1 Tablet by mouth daily. Take at same time as iron (Patient not taking: Reported on 08/17/2024) 90 Tablet 2 Escitalopram Oxalate 10 MG Oral Tablet (Lexapro) 1/2 DAILY X 8 DAYS THEN 1 DAILY (Patient not taking: Reported on 08/17/2024) 30 Tablet 5 Amphetamine-Dextroamphet ER 25 MG Oral Capsule Extended Release 24 Hour (Adderall XR) Take 1 Capsule by mouth in the morning. Do not cut, crush or chew. (Patient not taking: Reported on 08/17/2024) 30 Capsule 0 Amphetamine-Dextroamphetamine 5 MG Oral Tablet (Adderall) One tablet daily with lunch (Patient not taking: Reported on 08/17/2024) 30 Tablet 0 No current facility-administered medications for this visit. Past Medical History: Diagnosis Date ADD (attention deficit disorder) ADHD (attention deficit hyperactivity disorder), combined type 04/19/2015 Gestational hypertension 2021 History of cold sores valtrex PRN Seasonal allergies Thrombocytopenia (HCC) 07/26/2022 Past Surgical History: Procedure Laterality Date NONE Review of patient's allergies indicates: No Known Allergies Objective: BP 124/82 (BP Site: Left Arm, BP Position: Sitting, BP Cuff Size: Regular) | Pulse 92 | Temp 97.1 F (36.2 C) (Tympanic) | Ht 5' 4" (1.626 m) | Wt 113 lb (51.3 kg) | LMP 08/16/2024 | SpO2 98% | No | BMI 19.40 kg/m | BSA 1.52 m Physical Exam: General: alert, healthy, and no distress Eye Exam: PERRLA, extraocular movements intact, conjunctiva are pink and non- injected, sclera clear Oropharynx: no exudate, no erythema, lips, buccal mucosa, and tongue normal, and mucous membranes are moist Heart: regular rate & rhythm, no murmur, and no gallops Lungs: lungs clear to auscultation Extremities: no edema, no clubbing, no cyanosis ASSESSMENT/PLAN: Attention deficit disorder, unspecified type (Primary) - ADULT/PEDS PSYCHOLOGY REFERRAL OP Anxiety - ADULT/PEDS PSYCHOLOGY REFERRAL OP Other orders - hydrOXYzine HCl 10 MG Oral Tablet (Atarax); Take 1 Tablet by mouth every 6 hours as needed for Anxiety. Call if problems try a dose of hydroxyzine when she can just be hanging out with spouse around Maikel Stanton III, MD documented in this encounter Nursing Notes * Bossman Witt CMA - 08/17/2024 9:30 AM EST The patient has been properly identified by confirmation of name and date of . Chief Complaint Patient presents with Follow Up Pt is here for here for follow up on anxiety medication. Pt is here to discuss decision to come offher Aderol and is enthusiastic in continuing to go with out it. documented in this encounter Plan of Treatment Upcoming Encounters Date Type Department Care Team (Late st Contact Info) Description 11/18/2024 7:40 AM EDT Office Visit Family Practice [facility] [place] [address] [facility] [place] [place] [address] Maikel Stanton III, MD [address] [facility] [place] [address] Scheduled Referrals Name Type Priority Associated Diagnoses Orde r Schedule ADULT/PEDS PSYCHOLOGY REFERRAL OP Referral Within 3 days (urgent) Attention deficit disorder, unspecified type Anxiety Ordered: 08/17/2024 Health Maintenance Due Date Last Done Comments HPV/Co-Test 2023 COVID-19 Vaccine ( season) 2024 Influenza Vaccine (FLU shot) (#1) 2024 06/29/2009 Cervical Cancer Screening 12/13/2024 Pap Smear 12/13/2024 12/13/2021, 08/06/2019 Depression Screening 07/01/2025 07/01/2024 DTap/Tdap Vaccines (9 - Td or Tdap) 08/21/2031 08/21/2021, 08/06/2019, 04/27/2009, Additional history exists Hepatitis B Vaccine Completed 1993, 1993, 1993 MENINGOCOCCAL (MENACTRA/MENVEO) Completed 04/27/2009 HPV (Gardasil) Vaccine Completed , 06/29/2009, 04/27/2009 Pneumococcal Vaccine: Pediatrics (0 to 5 Years) and At-Risk Patients (6 to 64 Years) Aged Out No longer eligible based on patient's age to complete this topic documented as of this encounter Medical Devices Not on filedocumented as of this encounter Visit Diagnoses Diagnosis Medication exposure during first trimester of - Primary Supervision of other high-risk Antepartum anemia complicating Anemia, antepartum Attention deficit hyperactivity disorder (ADHD), unspecified ADHD type High-risk , second trimester Genetic screening Other genetic screening History of gestational hypertension- Primary Medication exposure during first trimester of Supervision of other high-risk Late care affecting , antepartum ADHD (attention deficit hyperactivity disorder), combined type Attention deficit disorder with hyperactivity Supervision of high risk in second trimester Unspecified high-risk Late care affecting , antepartum- Primary History of gestational hypertension ADHD (attention deficit hyperactivity disorder), combined type Attention deficit disorder with hyperactivity Other specified related conditions, second trimester Attention deficit disorder, unspecified type- Primary Anxiety Anxiety state, unspecified documented in this encounter Care Teams Audio Video Tech Relationship Specialty Start Date End Date Maikel Stanton III, MD [address] [place] [address] PCP - General Family Medicine 05/27/22 documented as of this encounter
--- OUTSIDE RECORDS SUMMARY | 2024-09-28 18:14 | External Medical Summary | Summary of Care ---
Author Name Unknown Organization [facility] Address [address] [place] [facility] [place] [place] [address] Phone [phone] Care Team Providers Care National Account Representative Name Role Phone Romy MUELLER MD, Craig Duran Primary Care Provider [phone] Reason for Visit * Reason Onset Date Comments Medication Refill 07/23/2024 Encounter Details Date Type Department Care Team (Late st Contact Info) Description 07/23/2024 Refill Family Practice [facility] [address] [place] [address] Stephanie Starr, [address] [place] [address] Allergies No known active allergiesdocumented as of this encounter (statuses as of 07/25/2024) Medications 27-0.8 MG Oral Tablet Take 1 Tablet by mouth daily at noon. Active Vitamin C 500 MG Oral Tablet (Ascorbic Acid)Indications :Antepartum anemia complicating Take 1 Tablet by mouth daily. Take at same time as iron 90 Tablet 2 02/04/20 23 Active Additional Information Patient not taking.Reported on 07/01/2024 valACYclovir HCl 1 GM Oral Tablet (Valtrex) Two pills by mouth every 12 hours for one day for cold sores 4 Tablet 5 03/24/20 24 Active Escitalopram Oxalate 10 MG Oral Tablet (Lexapro) 1/2 DAILY X 8 DAYS THEN 1 DAILY 30 Tablet 5 07/01/20 24 Active Amphetamine-Dext roamphet ER 25 MG Oral Capsule Extended Release 24 Hour (Adderall XR) Take 1 Capsule by mouth in the morning. Do not cut, crush or chew. 30 Capsule 07/25/20 24 Active Amphetamine-Dext roamphetamine 5 MG Oral Tablet (Adderall) One tablet daily with lunch 30 Tablet 07/25/20 24 Active Amphetamine-Dext roamphet ER 25 MG Oral Capsule Extended Release 24 Hour (Adderall XR) Take 1 Capsule by mouth in the morning. Do not cut, crush or chew. 30 Capsule 06/14/20 24 024 Discontin ued(Refil l) Amphetamine-Dext roamphetamine 5 MG Oral Tablet (Adderall) One tablet daily with lunch 30 Tablet 06/14/20 24 024 Discontin ued(Refil l) documented as of this encounter (statuses as of 07/25/2024) Active Problems Problem Noted Date Diagnosed Date Antepartum anemia complicating 023 Overview (02/03/2023): Hgb 11.3 at 18 weeks, Rx sent Late care affecting , antepart um 02/03/2023 Overview (02/04/2023): Late to care First PNV on 01/31/2023 at 17w 6d Patient states she didn't know she was until later; States she started feeling "weird" and a little dizzy [place] but they are happy about it Assessment & Plan (02/04/2023 8:03 AM EDT): Strongly encouraged patient to comply with routine OB care recommendations. Supervision of high-risk , unspecified trimester 01/31/2023 Late care 01/31/2023 Overview (01/31/2023): 1st seen 18 weeks Medication exposure during first trimester of pr egnancy 01/31/2023 Overview (02/04/2023): Takes Adderall for ADHD Managed by Dr. Larose, who is her PCP Patient plans to [...] ASA She was instructed to notify her security public safety officer if she had any headaches that did [...] as of this encounter (statuses as of 07/25/2024) Resolved Problems Problem Noted Date Diagnosed Date [...] and folate levels and referral to a dental laboratory technician. 4. If hemoglobin levels are below 8 g/dl, we recommend Maternal Medicine ultrasound for growth every 4 weeks after 24 weeks. Consider a blood transfusion if hemoglobin levels fall below 6 g/dL. ([employer] Practice Bulletin Number 95, March,). 5. Consider [...] as of this encounter (statuses as of 07/25/2024) Immunizations Name Administration Dates Next Due DTP [...] money to get more. Never true 01/31/2023 [place] Depression Scale Answer Date Recorded [place] Depression Scale Total 3 12/29/2023 The thought [...] years and over) Not on file 02/17/2024 Comments Unknown Sex and Gender Information Value Date Recorded Sex Assigned at Female 12/13/2021 3:15 PM EDT Legal Sex Female 4:24 PM EDT Gender Identity Female 12/13/2021 3:15 PM EDT Sexual Orientation Straight 12/13/2021 3: 15 PM EDT documented as of this encounter Miscellaneous Notes * Telephone Encounter - Craig Larose III, MD - 07/25/2024 1:43 PM ESTSigned Prescriptions: Disp Refills Amphetamine-Dextroamphet ER 25 MG Oral Cap*30 Cap*0 Sig: Take 1 Capsule by mouth in the morning. Do not cut, crush or chew.Authorizing Provider: CRAIG LAROSE III Amphetamine-Dextroamphetamine 5 MG Oral Ta*30 Tab*0 Sig: One tablet daily with lunchAuthorizing Provider: CRAIG LAROSE III * Telephone Encounter - Claude Blanca [facility] - 07/25/2024 11:38 AM ESTPending Prescriptions: Disp Refills Amphetamine-Dextroamphet ER 25 MG Oral Cap*30 Cap*0 Sig: Take 1 Capsule by mouth in the morning. Do not cut, crush or chew. Amphetamine-Dextroamphetamine 5 MG Oral Ta*30 Tab*0 Sig: One tablet daily with lunch * Telephone Encounter - Claude Blanca [facility] - 07/25/2024 11:37 AM EST I have reviewed the patients controlled substance dispensing history in the Prescription Drug Monitoring Program in compliance with the [facility] regulations before prescribing a controlled substance. PDMP checked on 07/25/2024. Pending Prescriptions: Disp Refills Amphetamine-Dextroamphet ER 25 MG Oral Cap*30 Cap*0 Sig: Take 1 Capsule by mouth in the morning. Do not cut, crush or chew. Amphetamine-Dextroamphetamine 5 MG Oral Ta*30 Tab*0 Sig: One tablet daily with lunch Last Visit: 07/01/2024 (in office), Visit date not found (telemedicine) Next Visit: 08/16/2024 Date medication was last filled: 06-14-24 Date medication is due for refill: 07-13-24 [facility]: [id number] [facility] Is this request for a controlled substance? and Urine Drug Screen Not completed Toxicology [...] to confirmatory testing. Please approve if appropriate. Claude Blanca, [place].Ph. Clinical Pharmacist [facility] [address] [place] [address], [address] [place] [address] [phone] 07/25/2024,11:37 AM documented in this encounter Plan of Treatment Upcoming Encounters Date Type Department Care Team (Late st Contact Info) Description 08/16/2024 8:00 AM EST Office Visit Family Practice [facility] [place] [address] [place] [address] Craig Larose III, MD [address] [place] [address] Health Maintenance Due Date Last Done Comments [...] filedocumented as of this encounter Care Teams National Account Representative Relationship Specialty Start Date End Date Craig Larose III, MD [address] [facility] [place] [address] PCP - General Family Medicine 05/27/22 documented as of this encounter
--- OUTSIDE RECORDS SUMMARY | 2024-09-28 18:14 | External Medical Summary | Summary of Care ---
Author Name Unknown Organization [facility] Address [address] [place] [address] Phone [phone] Care Team Providers Care Ceramic Coater Machine Name Role Phone Romy MUELLER MD, Maikel Duran Primary Care Provider [phone] Reason for Visit * Reason Comments Re-Check Routine check up Anxiety Encounter Details Date Type Department Care Team (Latest Contact Info) Description 07/01/2024 7:40 AM EDT Office Visit Family Practice [facility] [address] [facility] [place] [address] Maikel Stanton III, MD [address] [place] [address] ADHD (attention deficit hyperactivity disorder), combined type*; Anxiety Allergies No known active allergiesdocumented as of this encounter (statuses as of 07/04/2024) Medications Medication Sig Dispensed Refills Start Date End Date Status 27-0.8 MG Oral Tablet Take 1 Tablet by mouth daily at noon. Active Vitamin C 500 MG Oral Tablet (Ascorbic Acid)Indications:An tepartum anemia complicating Take 1 Tablet by mouth daily. Take at same time as iron 90 Tablet 2 02/03/2023 Active Additional Information Patient not taking.Reported on 07/01/2024 valACYclovir HCl 1 GM Oral Tablet (Valtrex) Two pills by mouth every 12 hours for one day for cold sores 4 Tablet 5 03/24/2024 Active Amphetamine-Dextroa mphet ER 25 MG Oral Capsule Extended Release 24 Hour (Adderall XR) Take 1 Capsule by mouth in the morning. Do not cut, crush or chew. 30 Capsule 06/14/2024 Active Amphetamine-Dextroa mphetamine 5 MG Oral Tablet (Adderall) One tablet daily with lunch 30 Tablet 06/14/2024 Active Escitalopram Oxalate 10 MG Oral Tablet (Lexapro) 1/2 DAILY X 8 DAYS THEN 1 DAILY 30 Tablet 5 07/01/2024 Active documented as of this encounter (statuses as of 07/04/2024) Active Problems Problem Noted Date Diagnosed Date Antepartum anemia complicating 023 Overview: Hgb 11.3 at 18 weeks, Rx sent Late care affecting , antepart um 02/03/2023 Overview: Late to care First PNV on 01/31/2023 at 17w 6d Patient states she didn't know she was until later; States she started feeling "weird" and a little dizzy [place] but they are happy about it Last [...] ASA She was instructed to notify her clam picker if she had any headaches that did [...] as of this encounter (statuses as of 07/04/2024) Resolved Problems Problem Noted Date Diagnosed Date [...] and folate levels and referral to a manager of digital. 4. If hemoglobin levels are below 8 g/dl, we recommend Maternal Medicine ultrasound for growth every 4 weeks after 24 weeks. Consider a blood transfusion if hemoglobin levels fall below 6 g/dL. ([employer] Bulletin Number 95, March,). 5. Consider [...] as of this encounter (statuses as of 07/04/2024) Immunizations Name Administration Dates Next Due DTP [...] money to get more. Never true 01/31/2023 [place] Depression Scale Answer Date Recorded [place] Depression Scale Total 3 12/29/2023 The thought [...] on file documented as of this encounter Last Filed Vital Signs Vital Sign Reading Time Taken Comments Blood Pressure 134/84 07/01/2024 7:46 AM EDT Pulse 84 07/01/2024 7:46 AM EDT Temperature 36.6 C (97.9 F) 07/01/2024 7:46 AM ED T Respiratory Rate 18 07/01/2024 7:46 AM EDT Oxygen Saturation - - Inhaled Oxygen Concentration - - Weight 52.2 kg (115 lb) 07/01/2024 7:46 AM EDT Height - - Body Mass Index 19.74 09/22/2023 12:38 PM EST documented in this encounter Progress Notes * Romy MUELLER, Maikel Duran MD - 07/01/2024 8:05 AM EDT Subjective: Yanni Burton is a 29 year old female. Chief Complaint Patient presents with Re-Check Routine check up Anxiety HPI: Follow-up ADHD concern today is she has been feeling more anxious for the last 6 weeks pretty much every no chest pain shortness of breath no swelling no bleeding urine or bowels anxiety scale reviewed 2 minimal" PMH: Patient Active Problem List Diagnosis MEDICATION USE [...] day for cold sores 4 Tablet 5 Amphetamine-Dextroamphet ER 25 MG Oral Capsule Extended Release 24 Hour (Adderall XR) Take 1 Capsule by mouth in the morning. Do not cut, crush or chew. 30 Capsule 0 Amphetamine-Dextroamphetamine 5 MG Oral Tablet (Adderall) One tablet daily with lunch 30 Tablet 0 Escitalopram Oxalate 10 MG Oral Tablet (Lexapro) 1/2 DAILY X 8 DAYS THEN 1 DAILY 30 Tablet 5 27-0.8 MG Oral Tablet Take 1 Tablet by mouth daily at noon. (Patient not taking: Reported on 07/01/2024) Vitamin C 500 MG Oral Tablet (Ascorbic Acid) Take 1 Tablet by mouth daily. Take at same time as iron (Patient not taking: Reported on 07/01/2024) 90 Tablet 2 No current facility-administered medications for this visit. Review of patient's allergies indicates: No Known Allergies Past Medical History: Diagnosis Date ADD (attention deficit disorder) ADHD (attention deficit hyperactivity disorder), combined type 04/19/2015 Gestational hypertension 2021 History of cold sores valtrex PRN Seasonal allergies Thrombocytopenia (HCC) 07/26/2022 Past Surgical History: Procedure Laterality Date NONE Objective: The patient is a 29 year old female BP 134/84 (BP Site: Left Arm, BP Position: Sitting, BP Cuff Size: Regular) | Pulse 84 | Temp 36.6 C (97.9 F) (Tympanic) | Resp 18 | Wt 52.2 kg (115 lb) | BMI 19.74 kg/m | BSA 1.54 m General: alert, healthy, and no distress Eye Exam: PERRLA, extraocular movements intact, conjunctiva are pink and non- injected, sclera clear Oropharynx: no exudate, no erythema, lips, buccal mucosa, and tongue normal, and mucous membranes are moist Heart: regular rate & rhythm, no murmur, and no gallops Lungs: lungs clear to auscultation Extremities: no edema, no clubbing, no cyanosis ASSESSMENT: (F90.2) ADHD (attention deficit hyperactivity disorder), combined type (primary encounter diagnosis) (F41.9) Anxiety PLAN: Discussed pharmacotherapy versus psychology would prefer to try medications will get urine tox screen a last took Adderall yesterday morning flu vaccine discussed recommended begin escitalopram Follow up in 6 week(s). Maikel Stanton III, MD documented in this encounter Plan of Treatment Scheduled Orders Name Type Priority Associated Diagnoses Orde r Schedule TOXICOLOGY, URINESCREEN W/ CONFIRMATION Lab Routine ADHD (attention deficit hyperactivity disorder), combined type Expected: 07/01/2024, Expires: 07/01/2025 Health Maintenance Due Date Last Done Comments [...] as of this encounter Visit Diagnoses Diagnosis ADHD (attention deficit hyperactivity disorder), combined type- Primary Attention deficit disorder with hyperactivity Anxiety Anxiety state, unspecified documented in this encounter Care Teams Ceramic Coater Machine Relationship Specialty Start Date End Date Maikel Stanton III, MD [address] [facility] [place] [address] PCP - General Family Medicine 05/27/22 documented as of this encounter
[2024-09-28] MEDS: SODIUM CHLORIDE 0.9% 1,000 ML IV SCH (18:15)
--- OUTSIDE RECORDS SUMMARY | 2024-09-28 18:15 | External Medical Summary | Summary of Care ---
Author Name Unknown Organization [facility] Address [address] [place] [address] Phone [phone] Care Team Providers Care Fur Comber Name Role Phone Romy MUELLER MD, Maikel Duran Primary Care Provider [phone] Reason for Visit * Reason Onset Date Comments Medication Refill 04/29/2024 Encounter Details Date Type Department Care Team (Late st Contact Info) Description 04/29/2024 Refill Family Practice [facility] [address] [facility] [place] [address] Maikel Stanton III, MD 200 [place] [address] Allergies No known active allergiesdocumented as of this encounter (statuses as of 04/29/2024) Medications Medication Sig Dispensed Refills Start Date [...] sores 4 Tablet 5 03/24/2024 Active Amphetamine-Dextro amphetamine 5 MG Oral Tablet (Adderall) One tablet daily with lunch 30 Tablet 03/16/2024 04/29/2024 Discontinued (Refill) Amphetamine-Dextro amphet ER 25 MG Oral Capsule Extended Release 24 Hour (Adderall XR) Take 1 Capsule by mouth in the morning. Do not cut, crush or chew. 30 Capsule 03/25/2024 04/29/2024 Discontinued (Refill) documented as of this encounter (statuses as of 04/29/2024) Active Problems Problem Noted Date Diagnosed Date Antepartum anemia complicating 023 Overview: Hgb 11.3 at 18 weeks, Rx sent Late care affecting , antepart um 02/03/2023 Overview: Late to care [facility] PNV on 01/31/2023 at 17w 6d Patient states she didn't know she was until later; States she started feeling "weird" and a little dizzy [place] but they are happy about it Last [...] ASA She was instructed to notify her child specialist if she had any headaches that did [...] type 04/19/2015 Overview: Diagnosed with severe ADHD 2015 Managed with Adderall Has discussed this with her PCP and plans to continue Adderall during Last Assessment & Plan: Well controlled with adderall MEDICATION USE AGREEMENT 06/15/2014 Overview: Managed by Romy. To view the Medication Usage Agreement, go to Action, Patient Files. documented as of this encounter (statuses as of 04/29/2024) Resolved Problems Problem Noted Date Diagnosed Date [...] and folate levels and referral to a sr. strategic sourcing manager. 4. If hemoglobin levels are below 8 g/dl, we recommend Maternal Medicine ultrasound for growth every 4 weeks after 24 weeks. Consider a blood transfusion if hemoglobin levels fall below 6 g/dL. ([employer] [place] [employer] Sales[employer] Practice Bulletin Number 95, March,). 5. Consider [...] as of this encounter (statuses as of 04/29/2024) Immunizations Name Administration Dates Next Due DTP [...] money to get more. Never true 01/31/2023 [place] Depression Scale Answer Date Recorded [place] Depression Scale Total 3 12/29/2023 The thought [...] encounter Miscellaneous Notes * Telephone Encounter - Alden Levy, [facility] - 04/29/2024 12:04 PM EDTRefused Prescriptions: Disp Refills valACYclovir HCl 1 GM Oral Tablet (Valtrex)4 Tabl*5 Sig: Two pills by mouth every 12 hours for one day for cold soresRefused By: ALDEN OLIVIA MReason for Refusal: Too soonReason for Refusal Comment: pt advised documented in this encounter Plan of Treatment Upcoming Encounters Date Type Department Care Team (Late st Contact Info) Description 07/01/2024 7:40 AM EDT Office Visit Family Practice [facility] [address] [place] [address] Maikel Stanton III, MD [address] [place] [address] Health Maintenance Due Date Last Done Comments Depression Screening 10/20/2020 10/20/2019 HPV/Co-Test 2023 COVID-19 Vaccine ( season) 2023 Influenza Vaccine (FLU shot) (#1) 2024 06/29/2009 [...] filedocumented as of this encounter Care Teams Fur Comber Relationship Specialty Start Date End Date Maikel Stanton III, MD [address] [place] [address] PCP - General Family Medicine 05/27/22 documented as of this encounter
--- OUTSIDE RECORDS SUMMARY | 2024-09-28 18:15 | External Medical Summary | Summary of Care ---
Author Name Unknown Organization [facility] Address [address] [place] [address] Phone [phone] Care Team Providers Care Technology Intern Name Role Phone Romy MUELLER MD, Craig Duran Primary Care Provider [phone] Reason for Visit * Reason Onset Date Comments Medication Refill 04/29/2024 Encounter Details Date Type Department Care Team (Late st Contact Info) Description 04/29/2024 Refill Family Practice [facility] [address] [place] [address] Hosea Quinteros MD [address] [place] [address] [place] [id number] Allergies No known active allergiesdocumented as of [...] cut, crush or chew. 30 Capsule 04/29/2024 Active Amphetamine-Dextro amphet ER 25 MG Oral [...] started feeling "weird" and a little dizzy [place] but they are happy about it Last [...] ASA She was instructed to notify her head of academic technology if she had any headaches that did [...] and folate levels and referral to a rotary cutter feeder. 4. If hemoglobin levels are below 8 g/dl, we recommend Maternal Medicine ultrasound for growth every 4 weeks after 24 weeks. Consider a blood transfusion if hemoglobin levels fall below 6 g/dL. ([employer] [place] [employer] Community [employer] Assistant Practice Bulletin Number 95, March,). 5. Consider [...] money to get more. Never true 01/31/2023 [place] Depression Scale Answer Date Recorded [place] Depression Scale Total 3 12/29/2023 The thought [...] Encounter - Craig Larose III, MD - 04/29/2024 12:15 PM EDTSigned Prescriptions: Disp Refills Amphetamine-Dextroamphet ER 25 MG Oral Cap*30 Cap*0 Sig: Take 1 Capsule by mouth in the morning. Do not cut, crush or chew.Authorizing Provider: CRAIG LAROSE III--- * Telephone Encounter - Alden Levy, [facility] - 04/29/2024 12:02 PM EDTPending Prescriptions: Disp Refills Amphetamine-Dextroamphet ER 25 MG Oral Cap*30 Cap*0 Sig: Take 1 Capsule by mouth in the morning. Do not cut, crush or chew. * Telephone Encounter - Aldne Levy [facility] - 04/29/2024 12:02 PM EDT I have reviewed the patients controlled substance dispensing history in the Prescription Drug Monitoring Program in compliance with the [facility] regulations before prescribing a controlled substance. PDMP checked on 04/29/2024. Pending Prescriptions: Disp Refills Amphetamine-Dextroamphet ER 25 MG Oral Ca*30 Cap*0 Sig: Take 1 Capsule by mouth in the morning. Do not cut, crush or chew. Last Visit: 09/22/2023 (in office), Visit date not found (telemedicine) Next Visit: 07/01/2024 Date medication was last filled: 03/25/24 Date medication is due for refill: 04/23/24 [facility]acy: [facility] #[id number] [facility] Is this request for a controlled substance? [...] confirmatory testing. Please approve if appropriate. Thank You, Alden Landeros [facility] Clinical Pharmacist Central[facility] ([facility]) 04/29/2024, 12:02 PM documented in this encounter Plan of Treatment Upcoming Encounters Date Type Department Care Team (Late st Contact Info) Description 07/01/2024 7:40 AM EDT Office Visit Family Practice [facility] [place] [address] [place] [address] Craig Larose III, MD [address] [facility] [place] [address] Health Maintenance Due Date Last Done Comments [...] filedocumented as of this encounter Care Teams Technology Intern Relationship Specialty Start Date End Date Craig Larose III, MD [address] [place] [address] PCP - General Family Medicine 05/27/22 documented as of this encounter
--- OUTSIDE RECORDS SUMMARY | 2024-09-28 18:15 | External Medical Summary | Summary of Care ---
Author Name Unknown Organization [facility] Address [address] [facility] [place] [address] Phone [phone] Care Team Providers Care Waste Machine Operator Name Role Phone Romy MUELLER MD, Craig Duran Primary Care Provider [phone] Reason for Visit * Reason Onset Date Comments Medication Refill 04/29/2024 Encounter Details Date Type Department Care Team (Late st Contact Info) Description 04/29/2024 Refill Family Practice [facility] [address] [facility] [place] [address] Stephanie Starr, [address] [facility] [place] [address] Allergies No known active allergiesdocumented as of [...] tablet daily with lunch 30 Tablet 04/29/2024 Active Amphetamine-Dextro amphetamine 5 MG Oral Tablet [...] started feeling "weird" and a little dizzy [place] but they are happy about it Last [...] ASA She was instructed to notify her furniture dipper if she had any headaches that did [...] and folate levels and referral to a junior estimator. 4. If hemoglobin levels are below 8 g/dl, we recommend Maternal Medicine ultrasound for growth every 4 weeks after 24 weeks. Consider a blood transfusion if hemoglobin levels fall below 6 g/dL. ([employer] and [employer] Web User Interface Developer Practice Bulletin Number 95, March,). 5. Consider [...] money to get more. Never true 01/31/2023 [place] Depression Scale Answer Date Recorded [place] Depression Scale Total 3 12/29/2023 The thought [...] 04/29/2024 12:15 PM EDTSigned Prescriptions: Disp Refills Amphetamine-Dextroamphetamine 5 MG Oral Ta*30 Tab*0 Sig: One tablet daily with lunchAuthorizing Provider: CRAIG LAROSE III * [facility] 12:05 PM EDTPending Prescriptions: Disp Refills Amphetamine-Dextroamphetamine 5 MG Oral Ta*30 Tab*0 Sig: One tablet daily with lunch * [facility] - [facility] 04/29/[facility]24 12:05 PM EDT I have reviewed the patients controlled substance dispensing history in the Prescription Drug Monitoring Program in compliance with the [facility] regulations before prescribing a controlled substance. PDMP checked on 04/29/2024. Pending Prescriptions: Disp Refills Amphetamine-Dextroamphetamine 5 MG Oral T*30 Tab*0 Sig: One tablet daily with lunch Last Visit: 09/22/2023 (in office), Visit date not found (telemedicine) Next Visit: 07/01/2024 Date medication was last filled: 7/16/24 Date medication is due for refill: 04/14/24 Pharmacy: [facility] #[id number] [facility] Is this request for a controlled [...] appropriate. Thank You, Alden Landeros [facility] Clinical Pharmacist Centralized Clinical Pharmacy Services ([facility]) 04/29/2024, 12:05 PM documented in this encounter Plan of Treatment Upcoming Encounters Date Type Department Care Team (Late st Contact Info) Description 07/01/2024 7:40 AM EDT Office Visit Family Practice [facility] [address] [place] [address] Craig Larose III, MD [address] [place] [address] Health Maintenance Due Date Last Done Comments [...] filedocumented as of this encounter Care Teams Waste Machine Operator Relationship Specialty Start Date End Date Craig Larose III, MD 200 [place] [address] PCP - General Family Medicine 05/27/22 documented as of this encounter
[2024-09-28] MEDS: cefTRIAXone SODIUM 2,000 MG/50 ML BAG IV SCH (18:36)
[2024-09-28] MEDS: THIAMINE HCL 100 MG TAB PO SCH (19:21)
[2024-09-29 06:35] LABS: Basophils # (auto) 0.04 K/uL (0.00-0.20); Basophils % (auto) 1.1 %; Eosinophils # (auto) 0.07 K/uL (0.00-0.50); Eosinophils % (auto) 1.9 %; Hematocrit (blood only) 34.6 % (37.0-47.0); Hemoglobin 12.2 g/dl (12.0-16.0); Immature Granulocytes # (auto) 0.01 K/uL (0.01-0.20); Immature Granulocytes % (auto) 0.3 %; Lymphocytes # (auto) 0.98 K/uL (1.20-3.40); Lymphocytes % (auto) 26.9 %; Mean Corpuscular Hemoglobin 33.9 pg (25.0-34.0); Mean Corpuscular Hgb Conc 35.3 g/dL (32.0-36.0); Mean Corpuscular Volume 96.1 fL (80.0-100.0); Mean Platelet Volume 10.7 fL (9.4-12.4); Monocytes # (auto) 0.41 K/uL (0.11-0.59); Monocytes % (auto) 11.3 %; Neutrophils # (auto) 2.13 K/uL (1.40-6.50); Neutrophils % (auto) 58.5 %; Platelet Count 167 K/uL (130-400); RDW Coefficient of Variation 11.5 % (11.5-14.5); RDW Standard Deviation 40.1 fL (36.4-46.3); White Blood Count 3.64 K/ul (4.8-10.8)
[2024-09-29 06:44] LABS: BUN Creatinine Ratio 17.2 (10-20); Calcium 8.5 mg/dl (8.6-10.3); Creatinine Clr Calc Pharmacy 118.7 ml/min; Magnesium 1.5 mg/dl (1.7-2.4); Potassium 3.5 mmol/L (3.5-5.1)
[2024-09-29] MEDS: ENOXAPARIN INJ 40 MG/0.4 ML SYR SQ SCH (08:26)
--- NOTE | 2024-09-29 09:43 | Electrocardiogram Report ---
Test Reason : Blood Pressure : */* mmHG Vent. Rate : 75 BPM Atrial Rate : 75 BPM P-R Int : 102 ms QRS Dur : 78 ms QT Int : 404 ms P-R-T Axes : 12 59 4 degrees QTcB Int : 451 ms Sinus rhythm with short MI Nonspecific T wave abnormality Abnormal ECG When compared with ECG of 28-Sep-2024 12:20, ST no longer depressed in Inferior leads Nonspecific T wave abnormality has replaced inverted T waves in Anterior leads Confirmed by Adam Srivastava ([id number]) on 09/29/2024 9:43:43 AM Referred By: REFERRED SELF Confirmed By: Adam Srivastava
--- NOTE | 2024-09-29 13:26 | Hospitalist Progress Note ---
Date of Service September 29, 2024 Assessment & Plan (1) Acute confusion: (2) Auditory hallucinations: (3) Attention deficit disorder: Plan This is a 29 y/o female with ADHD, prior gestational hypertension, post- depression, and other history as outlined below who presents to the ED today with acute confusion. Pt's initial work-up in the ED was negative for a specific cause. TSH was normal, urine positive for protein and ketones but negative for blood and leuk esterase. Urine tox was preliminarily positive for THC - reports use of vape pen 1-2 weeks ago. EtOH was negative. BioFire negative. CT head showed asymmetric prominence of the left caudate nucleus compared with the right so MRI of the brain was ordered and is pending. Pt referred for admission for further work-up and management of acute confusion without clear etiology. Differential includes infectious etiology such as UTI or Lyme, brain lesion, metabolic etiology, or psychiatric cause including potential acute psychosis. Acute confusion Auditory hallucinations ADHD - combined type Anxiety Not currently on any medications - stopped approximately one month ago Additional labs ordered now - VBG, Lyme screen, B12, ammonia Acute confusion and hallucinations seems to be episodic Looked very depressed during my examination this morning and answered questions appropriately Awaiting psychiatric evaluation Abnormal CT of the head Does not have any neurological symptoms with unremarkable neuroexamination MRI brain is unremarkable Possible UTI Admitting UA is suggestive of infection Denies any frequency, dysuria, fever or chills Empiric Rocephin - urine culture pending, Lyme screen ordered Abnormal EKG - Trend troponin - ECHO - Repeat EKG in the AM- unremarkable Code status: full code DVT prophylaxis: Lovenox Admission and Anticipated Discharge Date Admission Date: September 28, 2024 Subjective 09/29/2024 The patient was seen and examined in medical telemetry unit She was admitted with acute psychosis with paranoia and significant depression with anxiety She has been feeling better regarding her acute symptoms of psychosis Does not have any hallucination and/or delusion during my examination Remains very depressed Review of Systems Review of Systems: All systems reviewed and are unremarkable except as noted below Physical Exam Physical Exam: Lying in bed without any acute distress Constitutional: + ill appearing and + thin Eyes: PERRL, conjunctivae normal, anicteric sclerae ENMT: external ear and nose normal, oropharynx normal Neck: trachea midline, no thyromegaly Respiratory: no respiratory distress Auscultation: lungs clear to auscultation bilaterally Cardiovascular: Rate/Rhythm: regular rate and regular rhythm; not tachycardic Heart Sounds: normal S1 and normal S2; no murmur Extremities: no edema Gastrointestinal (Abdomen): Inspection/Auscultation: normal bowel sounds; abdomen not distended Percussion/Palpation: abdomen soft; abdomen nontender Musculoskeletal: No acute arthritis involving any of the joint Neurologic: normal touch/pain/proprioception and moves all extremities; no focal motor deficits Psychiatric: Affect: + depressed affect and + anxious affect Mood: + depressed mood Hallucinations: no auditory hallucinations and no visual hallucinations Lymphatic: no cervical or axillary lymphadenopathy Results & Data Results & Data Vital Signs (Past 12 Hours) Vital Signs Temp Pulse Pulse Resp BP Pulse Ox O2 Del Method 09/29/24 11:42 36.9 C 95 H 18 131/84 96 Room Air 09/29/24 09:39 69 09/29/24 07:42 36.8 C 90 20 130/84 95 Room Air 09/29/24 04:15 36.7 C 79 16 124/78 97 Room Air Laboratory Results Short CBC 09/29/24 Range/Units 05:54 WBC 3.64 L (4.8-10.8) K/ul Hgb 12.2 (12.0-16.0) g/dl Hct 34.6 L (37.0-47.0) % Plt Count 167 (130-400) K/uL BMP 09/29/24 05:54 Sodium 140 Potassium 3.5 Chloride 108 H Carbon Dioxide 24 BUN 10 Creatinine 0.58 L Glucose 91 Calcium 8.5 L Medications Administered Current Inpatient Medications Acetaminophen (Acetaminophen 325 Mg Tab) 650 mg PO Q4H PRN PRN Reason: Pain or Fever Stop: 10/28/24 18:05 Enoxaparin Sodium (Enoxaparin Inj 40 Mg/0.4 Ml Syr) 40 mg SQ QAM [facility] Stop: 10/29/24 08:59 Last Admin: 09/29/24 08:26 Dose: Not Given Ceftriaxone Sodium (Rocephin) 2,000 mg in 50 mls @ 100 mls/hr IV Q24H [facility] Stop: 09/30/24 17:14 Last Infusion: 09/28/24 19:07 Dose: Infused Thiamine HCl (Thiamine Hcl 100 Mg Tab) 100 mg PO QAM [facility] Stop: 10/28/24 18:59 Last Admin: 09/29/24 08:26 Dose: 100 mg (3) Attention deficit disorder Attention deficit type: attention deficit hyperactivity disorder (ADHD) Attention deficit-hyperactivity disorder type: combined inattentive-hyperactive Qualified Code(s): F90.2 - Attention-deficit hyperactivity disorder, combined type
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
[2024-09-29] MEDS: MAGNESIUM OXIDE 400 MG TAB PO SCH (20:51)
[2024-09-30 11:01] VITALS: BP 128/79; RESP 18; TEMP 98.2; O2SAT 99
--- NOTE | 2024-09-30 14:56 | Hospitalist Progress Note ---
Date of Service September 30, 2024 Assessment & Plan (1) Acute confusion: (2) Auditory hallucinations: (3) Attention deficit disorder: Plan This is a 29 y/o female with ADHD, prior gestational hypertension, post- depression, and other history as outlined below who presents to the ED today with acute confusion. Pt's initial work-up in the ED was negative for a specific cause. TSH was normal, urine positive for protein and ketones but negative for blood and leuk esterase. Urine tox was preliminarily positive for THC - reports use of vape pen 1-2 weeks ago. EtOH was negative. BioFire negative. CT head showed asymmetric prominence of the left caudate nucleus compared with the right so MRI of the brain was ordered and is pending. Pt referred for admission for further work-up and management of acute confusion without clear etiology. Differential includes infectious etiology such as UTI or Lyme, brain lesion, metabolic etiology, or psychiatric cause including potential acute psychosis. Acute confusion Auditory hallucinations ADHD - combined type Anxiety Not currently on any medications - stopped approximately one month ago Additional labs ordered now - VBG, Lyme screen, B12, ammonia Acute confusion and hallucinations seems to be episodic Looked very depressed during my examination this morning and answered questions appropriately Awaiting psychiatric evaluation Appreciate psychiatric input and recommendation- she likes to go home and she does not meet the criteria for 302. She will be given medications as per recommendation from Dr. Kat. She is agreeable to come back to ER if her psych symptoms return. She can be discharged from the psychiatric point of view Abnormal CT of the head Does not have any neurological symptoms with unremarkable neuroexamination MRI brain is unremarkable Possible UTI Admitting UA is suggestive of infection Denies any frequency, dysuria, fever or chills Empiric Rocephin - urine culture pending, Lyme screen ordered Urine culture came back negative for any significant infection Abnormal EKG - Trend troponin - ECHO showed normal LV systolic function, EF was 55 to 60%, LV wall motion is normal, and normal LV relaxation - Repeat EKG in the AM- unremarkable Code status: full code DVT prophylaxis: Lovenox Admission and Anticipated Discharge Date Admission Date: September 28, 2024 Subjective 09/29/2024 The patient was seen and examined in medical telemetry unit She was admitted with acute psychosis with paranoia and significant depression with anxiety She has been feeling better regarding her acute symptoms of psychosis Does not have any hallucination and/or delusion during my examination Remains very depressed 09/30/2024 The patient was seen and examined in medical telemetry unit She was seen by the psychiatrist and she is not suicidal She has been cleared to go home with medication as advised Discussed with the patient and her significant other and they are in agreement with the recommendation She will be discharged home this afternoon Review of Systems Review of Systems: All systems reviewed and are unremarkable except as noted below Physical Exam Physical Exam: Lying in bed without any acute distress Constitutional: + ill appearing and + thin Eyes: PERRL, conjunctivae normal, anicteric sclerae ENMT: external ear and nose normal, oropharynx normal Neck: trachea midline, no thyromegaly Respiratory: no respiratory distress Auscultation: lungs clear to auscultation bilaterally Cardiovascular: Rate/Rhythm: regular rate and regular rhythm; not tachycardic Heart Sounds: normal S1 and normal S2; no murmur Extremities: no edema Gastrointestinal (Abdomen): Inspection/Auscultation: normal bowel sounds; abdomen not distended Percussion/Palpation: abdomen soft; abdomen nontender Neurologic: normal touch/pain/proprioception and moves all extremities; no focal motor deficits Psychiatric: Affect: + depressed affect and + anxious affect Mood: + depressed mood Hallucinations: no auditory hallucinations and no visual hallucinations Lymphatic: no cervical or axillary lymphadenopathy Results & Data Results & Data Vital Signs (Past 12 Hours) Vital Signs Temp Pulse Pulse Resp BP Pulse Ox O2 Del Method 09/30/24 11:00 36.8 C 89 18 128/79 99 Room Air 09/30/24 07:36 36.7 C 101 H 20 127/87 96 Room Air 09/30/24 07:23 69 09/30/24 03:43 36.7 C 87 20 120/78 97 Room Air Medications Administered Current Inpatient Medications Acetaminophen (Acetaminophen 325 Mg Tab) 650 mg PO Q4H PRN PRN Reason: Pain or Fever Stop: 10/28/24 18:05 Enoxaparin Sodium (Enoxaparin Inj 40 Mg/0.4 Ml Syr) 40 mg SQ QAM [facility] Stop: 10/29/24 08:59 Last Admin: 09/30/24 07:46 Dose: Not Given Ceftriaxone Sodium (Rocephin) 2,000 mg in 50 mls @ 100 mls/hr IV Q24H [facility] Stop: 09/30/24 17:14 Last Infusion: 09/29/24 17:37 Dose: Infused Magnesium Oxide (Magnesium Oxide 400 Mg Tab) 400 mg PO BID MIC Stop: 10/29/24 20:59 Last Admin: 09/30/24 08:35 Dose: 400 mg Thiamine HCl (Thiamine Hcl 100 Mg Tab) 100 mg PO QAM MIC Stop: 10/28/24 18:59 Last Admin: 09/30/24 08:35 Dose: 100 mg (3) Attention deficit disorder Attention deficit type: attention deficit hyperactivity disorder (ADHD) Attention deficit-hyperactivity disorder type: combined inattentive-hyperactive Qualified Code(s): F90.2 - Attention-deficit hyperactivity disorder, combined type
[2024-09-30 15:12] VITALS: PULSE 84
--- NOTE | 2024-09-30 18:31 | Discharge Summary ---
Date of Service September 30, 2024 Admission HPI Per Admitting Provider This is a 29 y/o female with ADHD, prior gestational hypertension, post- depression, and other history as outlined below who presents to the ED today with acute confusion. assists with the history due to patient's altered mental status. He reports that on Friday, three days ago, he noted that she seemed more lethargic and slightly confused. On Friday, the confusion seemed to be worsening. He describes patient as being paranoid and stating that their home was bugged and that someone was watching her. He is unsure if she was having visual hallucinations but notes she appeared to be having auditory hallucinations asking him if he heard things that no one else was hearing. He reports pt has had minimal oral intake over the last two days, which he relates to the paranoia. When asked, pt just says that she's not eating. She has also not been sleeping much the last 2-3 nights due to her son waking up frequently as well as due to increased anxiety. Her notes increasing social anxiety over the last several months. She apparently received notice on last week for jury duty yesterday, which resulted in increased anxiety. She was unable to attend jury duty yesterday because of the confusion and lethargy. She denies suicidal ideations, and her confirms that she has said nothing about hurting herself to him. She recognizes her children but today did not seem to know how she was supposed to interact with them. Her reports similar, less severe, symptoms about a month ago that lasted for two days before resolving spontaneously. Prior to that, he denies her having similar symptoms in the fourteen years that they have been together. She reportedly drinks alcohol a few times a week, typically a glass of wine with dinner or something similar. Her reports that she used a marijuana vape pen briefly 1-2 weeks ago but states that she does not regularly smoke. She has a history of ADHD and was on Adderall for years. However, about a month ago, she decided to stop all of her medications "cold turkey" one weekend just before the first episode of altered mental status. She saw her PCP after that episodes and was prescribed hydroxyzine for anxiety which she has only taken occasionally, most recently this morning. Pt denies overdosing on any of her medications or on any OTC medications. She denies chest pain, shortness of breath, neck stiffness, ROMERO, visual changes, N/V/D, abdominal pain, dysuria, fevers, weakness, syncope. She had some transient numbness and tingling in her bilateral fingertips earlier today. She notes occasional palpitations when anxiety is more severe. Admission Exam Per Admitting Provider Vitals signs as noted above General Appearance:Moderately built and nourished, no apparent distress Head: normocephalic, Atraumatic Eyes: normal inspection, EOMI Neck: supple, Trachea midline Respiratory/Chest: Normal breath sounds, CTA, No accessory muscle use Cardiovascular: S1, S2, No murmur Abdomen/GI:Soft, Non tender, Bowel sounds present Extremities/Musculoskeletal:normal inspection, no edema Neurologic/Psych:AAOX3, grossly no focal neurological deficits, anxious, confused Skin: normal color, warm Principal Diagnosis Acute confusion- resolved, ADHD, anxiety Discharge Exam Lying in bed without any acute distress Constitutional + ill appearing and + thin Eyes PERRL, conjunctivae normal, anicteric sclerae ENMT external ear and nose normal, oropharynx normal Neck trachea midline, no thyromegaly Respiratory no respiratory distress Auscultation: lungs clear to auscultation bilaterally Cardiovascular Rate/Rhythm: regular rate and regular rhythm; not tachycardic Heart Sounds: normal S1 and normal S2; no murmur Extremities: no edema Gastrointestinal (Abdomen) Inspection/Auscultation: normal bowel sounds; abdomen not distended Percussion/Palpation: abdomen soft; abdomen nontender Neurologic normal touch/pain/proprioception and moves all extremities; no focal motor deficits Psychiatric Affect: + depressed affect and + anxious affect Mood: + depressed mood Hallucinations: no auditory hallucinations and no visual hallucinations Lymphatic no cervical or axillary lymphadenopathy Discharge Data Allergies Allergy/AdvReac Type Severity Reaction Status Date / Time No Known Allergies Allergy Verified 10/25/21 15:17 Consultations 09/28/24 16:52 ED Decision to Admit Stat 09/28/24 18:11 Consult Psychiatry Routine Ordered Studies 09/28/24 14:02 CT head/brain wo con Stat 09/28/24 14:43 MRI Brain [MR brain wo con] Stat Hospital Course (1) Acute confusion: (2) Auditory hallucinations: (3) Attention deficit disorder: Plan This is a 29 y/o female with ADHD, prior gestational hypertension, post- depression, and other history as outlined below who presents to the ED today with acute confusion. Pt's initial work-up in the ED was negative for a specific cause. TSH was normal, urine positive for protein and ketones but negative for blood and leuk esterase. Urine tox was preliminarily positive for THC - reports use of vape pen 1-2 weeks ago. EtOH was negative. BioFire negative. CT head showed asymmetric prominence of the left caudate nucleus compared with the right so MRI of the brain was ordered and is pending. Pt referred for admission for further work-up and management of acute confusion without clear etiology. Differential includes infectious etiology such as UTI or Lyme, brain lesion, metabolic etiology, or psychiatric cause including potential acute psychosis. Acute confusion Auditory hallucinations ADHD - combined type Anxiety Not currently on any medications - stopped approximately one month ago Additional labs ordered now - VBG, Lyme screen, B12, ammonia Acute confusion and hallucinations seems to be episodic Looked very depressed during my examination this morning and answered questions appropriately Awaiting psychiatric evaluation Appreciate psychiatric input and recommendation- she likes to go home and she does not meet the criteria for 302. She will be given medications as per recommendation from Dr. Kat. She is agreeable to come back to ER if her psych symptoms return. She can be discharged from the psychiatric point of view Abnormal CT of the head Does not have any neurological symptoms with unremarkable neuroexamination MRI brain is unremarkable Possible UTI Admitting UA is suggestive of infection Denies any frequency, dysuria, fever or chills Empiric Rocephin - urine culture pending, Lyme screen ordered Urine culture came back negative for any significant infection Abnormal EKG - Trend troponin - ECHO showed normal LV systolic function, EF was 55 to 60%, LV wall motion is normal, and normal LV relaxation - Repeat EKG in the AM- unremarkable Code status: full code DVT prophylaxis: Lovenox Total Time Total Time Spent Total Time Spent (In Minutes): 40 Minutes Discharge Plan Discharge Items Patient Disposition: Home - Self-Care Reason For Visit: ACUTE CONFUSION Discharge Diagnosis: Acute confusion- resolved, ADHD, anxiety Condition on Discharge: Good Activity: Resume your previous activity Non-emergency contact: Primary Care Provider Call non-emergency contact if: you have any medication questions and your symptoms worsen Follow-up/Referrals: Maikel Stanton MD [Primary Care Provider] - (Date & Time 10/07/2024 1:00 PM Provider: Nicki Thompson PA-C [facility] ) Diet: Regular Addtl Attending Provider Instructions: Please take precautions to avoid falls Take your medications as advised Keep appointment with your healthcare providers Pending Studies at Discharge: No Stand-Alone Forms: My [facility] [employer], Smoking Cessation Medications and DC Order Prescriptions: New aripiprazole [Abilify] 2 mg tablet 2 mg PO DAILY Qty: 30 0RF Continued hydroxyzine HCl 10 mg tablet 10 mg PO Q6H PRN (Reason: Anxiety) Discharge Orders: Discharge Order (Routine); Ordered 09/30/24 Ordered By: Lee Bhatti/Other Patient Handouts: Aripiprazole Oral Tablet Admission Data Admit Date/Time: 09/28/24 17:06 Attending Provider: Lee Henderson Admit Provider: Sajan Ace Primary Care Provider: Maikel Stanton Other Providers: Sajan Ace; Kaylee De Dios; Yoan Harry; Zee Wallace; Yolanda London; Mukul Urena; Gino Kat Other Interventions: Discharge Summary Assessment (RN) Last Done: 09/30/24 15:08
== END 2024-09-30 15:30 | disposition home or self-care (01) | DRG 885 ==
LOC: ED 11:56 → 2W 17:06 → SUATTDRO 17:06 → 2W 17:58

== ENCOUNTER 2025-02-15 10:15 | Inpatient (IN) ==
--- NOTE | 2025-02-15 11:08 | Emergency Department Note ---
Impression & Plan Suicidal ideation, Depressed ED Provider Note NAME: DAVID WILLINGHAM AGE: 30 SEX: F : 1995 ARRIVES VIA: Walk-In INFORMANT: [Patient][] ED PROVIDER(S): [Wil Gaytan MD] CHIEF COMPLAINT: Mental health evaluation HISTORY OF PRESENT ILLNESS: The patient is a 30-year-old female who had tried to take pills this morning but was caught by her and spit out all the pills. The patient does have a mental health history. She was hospitalized this year in September, she has been doing well since discharge up until the last few days. Recently, the patient apparently stopped her Abilify. This weekend, she was tearful and more upset. The felt it may have been from the fact that it was Father's Day and the patient does not have a great relationship with her family. The last few days, he was quite concerned about his and was afraid to leave her alone. Today, he left alone for under a minute and in that timeframe, she had tried to ingest pills. At the present time, the patient is not sure why she feels worse, she does not think she requires hospitalization on the mental health floors. Currently, there is no 302 petitioning paperwork in process. PMHx/PSHx/Social Hx: See Below PHYSICAL EXAM: GENERAL: Patient is in no acute distress. HEENT: No acute trauma, normocephalic atraumatic, mucous membranes moist, no nasal congestion. NECK: No stridor, no adenopathy, no meningismus, trachea is midline. LUNGS: Clear to auscultation bilaterally, no wheeze, no rhonchi, breath sounds equal. HEART: Without murmurs gallops or rubs, regular rate and rhythm. ABDOMEN: Soft, nontender, no peritonitis. EXTREMITIES: No cyanosis, full range of motion of all the joints without pain or difficulty. NEUROLOGIC: Oriented x 3, no acute motor or sensory deficits, no focal weakness. SKIN: No jaundice, no diaphoresis. Psychiatric: Very flat affect, quiet, at times seemingly tearful. Admits to taking a mouthful of pills earlier with intention for self-harm. DIFFERENTIAL DIAGNOSIS: Medication noncompliance, psychosis, suicidality, among others. EMERGENCY DEPARTMENT PROCEDURES: MEDICAL DECISION MAKING: There is no leukocytosis or concerning anemia. There is a normal platelet count. No renal failure or significant electrolyte abnormality. No concerning liver enzyme elevation. Patient appears to be in a euthyroid state. Urinalysis shows some potential dehydration, no infection. Aspirin, Tylenol and alcohol levels were undetectable. Urine tox was negative. COVID test was negative. Urine test was negative. On exam, the patient had a flattened affect and did admit to trying to overdose on pills earlier today. The patient was felt medically clear. She was seen by psychiatry case management. The patient was felt in need of a psychiatric hospitalization. She has agreed to sign into the hospital voluntarily. A psychiatric bed search is underway. The patient will be evaluated by our psychiatry services, 3 S. At this point, the case is being assumed by Dr. Armenta at the change of shift. Final disposition pending. Prior/Outside records/notes reviewed: None Imaging/x-ray results per my interpretation: Chronic Medical/Social conditions affecting care: History of mental health hospitalization earlier this year. Care/Management discussed with: Psychiatry case management. Level of care consideration(s): After review of the information above and other included data: --I believe the patient requires escalation of care to voluntary psychiatric admission DISPOSITION: Still a patient in the ED Past Med/Surg History Problem List Depressed (Acute) Suicidal ideation (Acute) Unspecified psychosis not due to a substance or known physiological condition Auditory hallucinations Acute confusion (Acute) Medical History Antepartum anemia Gestational hypertension Group B streptococcal infection during Seasonal allergies Recurrent cold sores Attention deficit disorder Surgical History No pertinent past surgical history Family History Brother Suicide Sister Liver disease Father Hypertension Other Heart disease Social History Smoking Status: Never smoker Hx Alcohol Use: Yes Alcohol type: wine Hx Substance Use: No Preferred Language: German Communication Ability: Effective Reporter Anchor Required: No Beliefs That Will Affect Care: None marital status: Current Living Situation: Spouse Current Living Situation Comment: live with spouse and two kids in a house Feels Safe at Home: Yes Gender Identity: Female Assistive Devices: None Allergies Allergies Allergy/AdvReac Type Severity Reaction Status Date / Time No Known Allergies Allergy Verified 10/25/21 15:17 Home Meds Home Medications Medication Instructions Recorded Confirmed aripiprazole 10 mg tablet 10 mg DAILY 02/15/25 02/15/25 atomoxetine 40 mg capsule 40 mg PO DAILY 02/15/25 02/15/25 Results & Data (ED) Vital Signs Vital Signs - 24 hr 02/15/25 10:23 02/15/25 12:16 02/15/25 14:40 Temperature 36.7 C Temperature Source Temporal Artery Scan Pulse Rate 104 H Pulse Rate [Finger] 96 H 90 Pulse Rhythm Regular Pulse Rhythm [Finger] Regular Pulse Strength Normal Pulse Strength [Finger] Normal Respiratory Rate 18 15 18 Respiratory Effort / Characteristics Non-Labored Spontaneous Non-Labored Spontaneous Non-Labored Spontaneous Respiratory Depth Normal Normal Normal Respiratory Pattern Regular Regular Regular Blood Pressure 144/93 H Blood Pressure [Right Arm] 130/88 144/89 H Blood Pressure Mean 110 Blood Pressure Mean [Right Arm] 102 107 Blood Pressure Position Sitting Blood Pressure Position [Right Arm] Sitting Sitting Pulse Oximetry 96 99 100 Oxygen Delivery Method Room Air Room Air Room Air Sepsis Recent Fever Within 48 Hours No Sepsis New/Unexplained Change in Mental Status N/A Sepsis Action Taken by Nursing No Action Required 02/15/25 16:00 Temperature Temperature Source Pulse Rate Pulse Rate [Finger] 100 H Pulse Rhythm Pulse Rhythm [Finger] Regular Pulse Strength Pulse Strength [Finger] Normal Respiratory Rate 20 Respiratory Effort / Characteristics Non-Labored Spontaneous Respiratory Depth Normal Respiratory Pattern Regular Blood Pressure Blood Pressure [Right Arm] 132/82 Blood Pressure Mean Blood Pressure Mean [Right Arm] 98 Blood Pressure Position Blood Pressure Position [Right Arm] Sitting Pulse Oximetry 96 Oxygen Delivery Method Room Air Sepsis Recent Fever Within 48 Hours Sepsis New/Unexplained Change in Mental Status Sepsis Action Taken by Shelter Medications Current Medication List: was personally reviewed by me Laboratory Data Attestation: I reviewed the patient's lab results. 02/15/25 11:25 02/15/25 11:25 Lab Results 02/15/25 02/15/25 02/15/25 Range/Units 11:25 14:36 14:42 WBC 5.14 (4.8-10.8) K/ul RBC 4.05 L (4.20-5.40) M/uL Hgb 13.8 (12.0-16.0) g/dl Hct 38.9 (37.0-47.0) % MCV 96.0 (80.0-100.0) fL MCH 34.1 H (25.0-34.0) pg MCHC 35.5 (32.0-36.0) g/dL RDW Std Deviation 43.8 (36.4-46.3) fL RDW Coeff of Lucas 12.4 (11.5-14.5) % Plt Count 215 (130-400) K/uL MPV 10.4 (9.4-12.4) fL Immature Gran % (Auto) 0.2 % Neut % (Auto) 68.6 % Lymph % (Auto) 22.6 % Grady % (Auto) 6.8 % Eos % (Auto) 0.8 % Baso % (Auto) 1.0 % Neut # (Auto) 3.53 (1.40-6.50) K/uL Lymph # (Auto) 1.16 L (1.20-3.40) K/uL Grady # (Auto) 0.35 (0.11-0.59) K/uL Eos # (Auto) 0.04 (0.00-0.50) K/uL Baso # (Auto) 0.05 (0.00-0.20) K/uL Immature Gran # (Auto) 0.01 (0.01-0.20) K/uL Sodium 141 (136-145) mmol/L Potassium 4.1 (3.5-5.1) mmol/L Chloride 104 (98-107) mmol/L Carbon Dioxide 28 (21-32) mmol/L Anion Gap 9 (3-11) BUN 12 (6-23) mg/dl Creatinine 0.74 (0.6-1.2) mg/dl Est Cr Clr Drug Dosing 94.2 ml/min eGFR 110.17 BUN/Creatinine Ratio 16.2 (10-20) Glucose 82 (70-99(Fasting)) mg/dl Calcium 9.5 (8.6-10.3) mg/dl Total Bilirubin 0.6 (0.2-1.0) mg/dl AST 25 (13-39) U/L ALT 17 (7-52) U/L Alkaline Phosphatase 74 (34-104) U/L Total Protein 8.0 (6.0-8.3) gm/dl Albumin 4.4 (3.4-5.0) gm/dl Globulin 3.6 (2.5-4.0) gm/dl Albumin/Globulin Ratio 1.2 (0.9-2) TSH 1.381 (0.300-4.500) uIu/ml Urine Color Yellow Urine Appearance Clear (Clear) Urine pH 6.0 (4.5-7.5) Ur Specific [place] 1.016 (1.000-1.030) Urine Protein Trace H (Negative) Urine Glucose (UA) Negative (Negative) Urine Ketones 1+ H (Negative) Urine Blood Negative (Negative) Urine Nitrite Negative (Negative) Urine Bilirubin Negative (Negative) Urine Urobilinogen Negative (Negative) Ur Leukocyte Esterase Negative (Negative) Urine WBC (Auto) 0-5 (0-5) /hpf Urine RBC (Auto) 0-2 (0-2) /hpf U Hyaline Cast (Auto) 0-2 (0-2) /lpf U Epithel Cells (Auto) 3-5 H (0-2) /hpf Urine Bacteria (Auto) None Seen (None Seen) POC Ur Test NEG (NEG) Urine Comment Salicylates < 3.0 L (3.0-30) mg/dl Urine Opiates Screen Neg (Neg) Ur Methadone, Qual Neg (Neg) Urine Fentanyl Screen Neg (Neg) Acetaminophen < 3 L (10-30) ug/ml Urine Barbiturates Neg (Neg) Ur Phencyclidine (PCP) Neg (Neg) U Amphetamin/Meth Scrn Neg (Neg) MDMA (Ecstasy) Screen Neg (Neg) U Benzodiazepines Scrn Neg (Neg) Ur Cocaine Metabolite Neg (Neg) U Marijuana (THC) Screen Neg (Neg) Ethyl Alcohol mg/dL < 10.0 (<10.0) mg/dl SARS-CoV-2, RNA, NAAT NEGATIVE (NEGATIVE) Discharge Plan Visit Data Chief Complaint: Mental Health Evaluation Stated Complaint: SUICIDAL THOUGHTS ED Provider: Briana Armenta Discharge Problem: Suicidal ideation, Depressed Patient Disposition: Still a Patient Condition: Good Forms Stand Alone Forms: My [facility], Suicide Prevention Resources Prescriptions Prescriptions: No Action aripiprazole 10 mg tablet 10 mg DAILY atomoxetine 40 mg capsule 40 mg PO DAILY Referrals Referrals: Maikel Stanton MD [Primary Care Provider] - Discharge Problem: Depressed Qualifiers: Depression Type: unspecified Qualified Code(s): F32.A - Depression, unspecified
[2025-02-15 11:52] LABS: Basophils # (auto) 0.05 K/uL (0.00-0.20); Eosinophils # (auto) 0.04 K/uL (0.00-0.50); Eosinophils % (auto) 0.8 %; Hematocrit (blood only) 38.9 % (37.0-47.0); Hemoglobin 13.8 g/dl (12.0-16.0); Immature Granulocytes # (auto) 0.01 K/uL (0.01-0.20); Immature Granulocytes % (auto) 0.2 %; Lymphocytes # (auto) 1.16 K/uL (1.20-3.40); Lymphocytes % (auto) 22.6 %; Mean Corpuscular Hemoglobin 34.1 pg (25.0-34.0); Mean Corpuscular Hgb Conc 35.5 g/dL (32.0-36.0); Mean Platelet Volume 10.4 fL (9.4-12.4); Monocytes # (auto) 0.35 K/uL (0.11-0.59); Monocytes % (auto) 6.8 %; Neutrophils # (auto) 3.53 K/uL (1.40-6.50); Neutrophils % (auto) 68.6 %; Platelet Count 215 K/uL (130-400); RDW Coefficient of Variation 12.4 % (11.5-14.5); RDW Standard Deviation 43.8 fL (36.4-46.3); Red Blood Count 4.05 M/uL (4.20-5.40); White Blood Count 5.14 K/ul (4.8-10.8)
[2025-02-15 12:02] LABS: Acetaminophen < 3 ug/ml (10-30); Salicylate < 3.0 mg/dl (3.0-30)
[2025-02-15 12:10] LABS: Albumin Globulin Ratio 1.2 (0.9-2); Albumin Level 4.4 gm/dl (3.4-5.0); BUN Creatinine Ratio 16.2 (10-20); Bilirubin,Total 0.6 mg/dl (0.2-1.0); Calcium 9.5 mg/dl (8.6-10.3); Creatinine Clr Calc Pharmacy 94.2 ml/min; Globulin 3.6 gm/dl (2.5-4.0); Potassium 4.1 mmol/L (3.5-5.1)
[2025-02-15 12:25] LABS: Thyroid Stimulating Hormone 1.381 uIu/ml (0.300-4.500)
[2025-02-15 14:50] LABS: Appearance Urine Clear (Clear); Bacteria Urine Automated None Seen (None Seen); Bilirubin Urine Negative (Negative); Blood Urine Negative (Negative); Cast Urine Automated 0-2 /lpf (0-2); Color Urine Yellow; Glucose Urine UA Negative (Negative); Ketones Urine 1+ (Negative); Leukocyte Esterase Urine Negative (Negative); Nitrite Urine Negative (Negative); Protein Urine Trace (Negative); RBC Urine Automated 0-2 /hpf (0-2); Specific Gravity Urine 1.016 (1.000-1.030); Urobilinogen Urine Negative (Negative); WBC Urine Automated 0-5 /hpf (0-5)
[2025-02-15 15:24] LABS: Amphetamines+Metham, Urine Neg (Neg); Barbiturates, Urine Neg (Neg); Benzodiazepine, Urine Neg (Neg); Cocaine, Urine Neg (Neg); Fentanyl, Urine Neg (Neg); MDMA (Ecstacy), Urine Neg (Neg); Marijuana, Urine Neg (Neg); Methadone, Urine Neg (Neg); Opiate, Urine Neg (Neg); Phencyclidine, Urine Neg (Neg)
--- NOTE | 2025-02-15 16:54 | Emergency Department Note ---
ED Visit Note Patient signed out to me by Dr. Gaytan at 17:00 Flat affect. afraid to leave her alone. Patient attempted to OD on pills. Did not swallow - just put in mouth. Medically cleared. [address] [place] [id number] evaluating for inpatient admission. Patient was evaluated by liaison for inpatient psychiatric unit [address] [place] [address]. 201 was signed by myself and the patient. She was excepted to [facility] inpatient psychiatric unit [address] [place] [address] for further evaluation and management. .
[2025-02-15] MEDS ORDERED: SODIUM CHLORIDE 0.65% NA SOLN 45 ML (OCEAN) PRN (19:36)
[2025-02-15] MEDS ORDERED: ACETAMINOPHEN 325 MG TAB PO PRN (19:36)
[2025-02-15] MEDS ORDERED: BISMUTH SUBSALICYLATE 262 MG CHEW PO PRN (19:36)
[2025-02-15] MEDS ORDERED: MAGNESIUM HYDROXIDE SUSP 30 ML UDC PO PRN (19:36)
[2025-02-15] MEDS ORDERED: hydrOXYzine HCl 25 MG TAB PO PRN (19:36)
[2025-02-15] MEDS ORDERED: ALUMINUM/MAGNESIUM SUSP 30 ML UDC PO PRN (19:36)
[2025-02-15] MEDS: LORazepam 0.5 MG TAB PO SCH (21:08)
[2025-02-16] MEDS: hydrOXYzine HCl 25 MG TAB PO PRN (03:11)
[2025-02-16] MEDS: SERTRALINE HCL 50 MG TABLET PO SCH (15:01)
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
[2025-02-16] MEDS: hydrOXYzine HCl 25 MG TAB PO SCH (21:36)
[2025-02-16] MEDS ORDERED: hydrOXYzine HCl 25 MG TAB PO SCH (22:00)
[2025-02-17 08:29] LABS: Chol HDL Ratio 1.7 (0-5)
[2025-02-17] MEDS: CHOLECALCIFEROL 125 MCG (5,000 UNITS) TAB PO SCH (10:41)
[2025-02-17 10:42] LABS: Estimated Average Glucose 88 mg/dl; Hemoglobin A1C 4.7 % (4.5-5.6)
[2025-02-17] MEDS: LORazepam 0.5 MG TAB PO STA (11:47)
[2025-02-17] MEDS: LORazepam 0.5 MG TAB ONE (11:57)
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
[2025-02-18 06:28] VITALS: PULSE 84; RESP 16; TEMP 98.2; O2SAT 99
[2025-02-18 09:09] VITALS: BP 127/82
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
== END 2025-02-18 15:49 | disposition home or self-care (01) | DRG 885 ==
LOC: ED 10:15 → 3S 18:52